=== PATIENT | female | born 1935 | race Caucasian/White ===

== ENCOUNTER 2018-04-01 15:00 | Inpatient (IN) | payer OTHER ==
--- NOTE | 2018-04-01 15:51 | PDOC ---
Attending Attestation - Resident Resident Name: Amari Bang - ED Attending Attestation I have performed the following: I have examined & evaluated the patient, The case was reviewed & discussed with the resident, I agree w/resident's findings & plan, Exceptions are as noted - HPI HPI: 04/01/18 16:10 82yo female with mechanical fall while walking with her walker today in the bathroom. Pt was caught by her granddaughter. States knee pain and R leg pain. Pt states able to get up with paramedics. No head injury. No loc. no neck pain. No back pain. No cp/sob/palpitations/lightheaded or dizziness prior to the fall. Pt denies recent abd pain. No n/v/d. No urinary complaints. Pt was walking into the bathroom when the event happened. Pt also had a mechanical fall off a chair last week and landed on her buttock. Pt denies all other complaints. Pt states she has chronic pain to her legs and follows with Dr. Patel. Denies back pain. - Physicial Exam PE: 04/01/18 16:12 Gen: aaox3, nad heart: +s1s2 reg lungs: cta b/l abd: soft, nt/nd +bs, obese ext: no c/c/e, radial and pedal pulses intact. Pt with FROM of LE without pain on both active and passive ROM. muscle strength 5/5 b/l LE, sensation intact, mild ecchymosis that appears old to R anterior tibia. Mild soft tissue swelling to L knee, incision scar to L knee c/d/i and well healed. FROM of hips, no pelvic ttp neuro: cn ii-xii grossly intact, no focal deficits, muscle strength 5/5 UE and LE, sensation intact skin: mild ecchymosis to R anterior tibia mid shaft, otherwise, warm, dry, intact - Medical Decision Making 04/01/18 15:51 I, Dr. Sybil Rowley, DO, attest that this document has been prepared under my direction and personally reviewed by me in its entirety. I further attest, that it accurately reflects all work, treatment, procedures and medical decision -making performed by me. 04/01/18 16:14 a/p: 82yo female with 2 mechanical falls -today fall because of pain in her legs while walking with her walker -will obtain xrays of knees, hips, pelvis -oxycodone for pain control -low suspicion for fracture -will monitor and reassess -EKG 04/01/18 16:55 degenerative changes of hips and pelvis T12, L2, L4 compression fractures - none that appear acute 04/01/18 20:01 pt unable to ambulate will place in obs will consult neurosx and ortho for pain eval Heart Score/ECG Review - ECG Intrepretation Comment:: 04/01/18 17:21 sinus at 99, nl axis, nl interval, no acute st/t wave finding
--- NOTE | 2018-04-01 16:20 | PDOC ---
History of Present Illness - General Chief Complaint: Injury Stated Complaint: FALL Time Seen by Provider: 04/01/18 15:18 History Source: Patient Exam Limitations: No Limitations - History of Present Illness Initial Comments: 04/01/18 16:14 The patient is an 82F with a PMH of depression, HTN, and HLD who presents with complaints of leg pain. The patient states that she fell twice over the past 1.5 weeks. She states that the first time she fell, she slipped off an office chair and fell on her buttocks. She saw her neurologist, Dr. Patel, who recommended an XR which she had not gotten. Today, she fell forward in her kitchen after tripping on an object. She was caught by her granddaughter but did sustain pain in her knees secondary to the fall. She denies any head trauma , LOC, numbness, tingling, weakness, CP, or SOB. Past History - Past Medical History Allergies/Adverse Reactions: Allergies Allergy/AdvReac Type Severity Reaction Status Date / Time No Known Allergies Allergy Verified 04/01/18 15:39 - Suicide/Smoking/Psychosocial Hx Smoking History: Current some day smoker Number of Cigarettes Smoked Daily: 3 Information on smoking cessation initiated: No Hx Alcohol Use: No Drug/Substance Use Hx: No Review of Systems - Review of Systems Able to Perform ROS?: Yes Comments:: 04/01/18 16:20 GENERAL/CONSTITUTIONAL: No fever or chills. No weakness. HEAD, EYES, EARS, NOSE AND THROAT: No change in vision. No ear pain or discharge. No sore throat. CARDIOVASCULAR: No chest pain, palpitations, or lightheadedness. RESPIRATORY: No cough, wheezing, shortness of breath, or hemoptysis. GASTROINTESTINAL: No nausea, vomiting, diarrhea, constipation, or abdominal pain. GENITOURINARY: No dysuria, frequency, hematuria, or change in urination. MUSCULOSKELETAL: Positive for b/l leg pain. No joint or muscle swelling or pain. No neck pain. SKIN: No rash or lesions. NEUROLOGIC: No headache, numbness, tingling, focal weakness, loss of consciousness, or change in strength/sensation. ENDOCRINE: No increased thirst. No abnormal weight change. HEMATOLOGIC/LYMPHATIC: No anemia, easy bleeding, or history of blood clots. ALLERGIC/IMMUNOLOGIC: No hives or skin allergy. Is the patient limited Sinhala proficient: No *Physical Exam - Vital Signs Last Vital Signs Temp Pulse Resp BP Pulse Ox 98.2 F 84 20 128/77 94 L 04/01/18 15:07 04/01/18 15:07 04/01/18 15:07 04/01/18 15:07 04/01/18 15:07 - Physical Exam Comments: 04/01/18 16:21 GENERAL: Well developed, well nourished. Awake and alert. No acute distress. HEENT: Normocephalic, atraumatic. Hearing grossly normal. Moist mucous membranes. PERRLA, EOMI. No conjunctival pallor. Sclera are non-icteric. NECK: Supple. Full ROM. No JVD. CARDIOVASCULAR: Regular rate and rhythm. No murmurs, rubs, or gallops. PULMONARY: No evidence of respiratory distress. Lungs clear to auscultation bilaterally. No wheezing, rales or rhonchi. ABDOMINAL: Soft. Non-tender. Non-distended. No rebound or guarding. GENITOURINARY: No CVA tenderness bilaterally. MUSCULOSKELETAL: Normal range of motion at all joints. No bony deformities or tenderness. Mild sacral tenderness. EXTREMITIES: No cyanosis. No clubbing. No edema. No calf tenderness or swelling. SKIN: Warm and dry. Normal capillary refill. No rashes. No jaundice. NEUROLOGICAL: Alert, awake, appropriate. Cranial nerves 2-12 intact. No deficits to light touch and temperature in lower extremities. 5/5 strength in quadriceps, hamstrings, and gastrocnemius. Normal speech. Gait is normal without ataxia. PSYCHIATRIC: Cooperative. Good eye contact. Appropriate mood and affect. Heart Score/ECG Review #1 ECG reviewed & interpreted by me at: 17:46 General ECG Interpretation: Sinus Rhythm, Normal Rate, Normal Intervals, No acute ischemic changes Compared to previous ECG there are: Previous ECG unavail 04/01/18 17:46 NSR vent rate 95 NH 162 QRS 78 QTc 490 No STD or KAMILA No signs of acute ischemia Prolonged QT ED Treatment Course - RADIOLOGY Radiology Studies Ordered: Category Date Time Status KNEE 3 POS-LEFT [RAD] Stat Radiology 04/01/18 15:28 Taken KNEE 3 POS-RIGHT [RAD] Stat Radiology 04/01/18 15:28 Taken PELVIS [RAD] Stat Radiology 04/01/18 15:28 Taken SPINE-LUMBAR SACRAL [RAD] Stat Radiology 04/01/18 15:28 Taken - Medications Given in the ED: ED Medications Discontinued Medications Generic Name Dose Route Start Last Admin Trade Name Juan PRN Reason Stop Dose Admin Oxycodone/Acetaminophen 1 combo 04/01/18 15:29 04/01/18 15:34 Percocet 5/325 - PO 04/01/18 15:30 1 combo ONCE ONE Administration Medical Decision Making - Medical Decision Making 04/01/18 16:34 The patient is an 82F who presents to the ER after having 2 mechanical falls. The patient does not have a PCP or orthopedic surgeon who she follows with. Preliminary read of XR shows arthritic changes in b/l hips, worse on the R without occult fracture. Pending official read. Pending EKG. Pt did not hit her head or have LOC therefore no head CT is indicated. 04/01/18 17:45 XR's negative for acute pathology. Will walk with pt and d/c home with ortho and neurosurg f/u. 04/01/18 18:44 Pt unable to ambulate with my assistance. Will page Dr. Bahena for admission. 04/01/18 19:23 I have endorsed the pt to Dr. Bahena for admission. She requests that I place an order for an ortho consult. *DC/Admit/Observation/Transfer Diagnosis at time of Disposition: Pain aggravated by walking - Discharge Dispostion Condition at time of disposition: Guarded Decision to Admit order: Yes - Referrals Referrals: Angie Benson MD [Primary Care Provider] - Paul Holland MD [Staff Physician] - - Patient Instructions - Post Discharge Activity
--- NOTE | 2018-04-01 20:01 | HP ---
Admitting History and Physical - Primary Care Physician PCP: Simone Bahena - Admission History of Present Illness: 82F with a PMH of depression, HTN, and HLD who presents with complaints of leg pain. The patient states that she fell twice over the past 1.5 weeks. She states that the first time she fell, she slipped off an office chair and fell on her buttocks. She saw her neurologist, Dr. Patel, who recommended an XR which she had not gotten. Today, she fell forward in her kitchen after tripping on an object. She was caught by her granddaughter but did sustain pain in her knees secondary to the fall. She denies any head trauma, LOC, numbness, tingling , weakness, CP, or SOB. - Past Medical History Cardiovascular: Yes: HTN, Hyperlipdemia - Smoking History Smoking history: Current some day smoker Aproximately how many cigarettes per day: 3 - Alcohol/Substance Use Hx Alcohol Use: No Home Medications - Allergies Allergies/Adverse Reactions: Allergies Allergy/AdvReac Type Severity Reaction Status Date / Time No Known Allergies Allergy Verified 04/01/18 15:39 - Home Medications Home Medications: Ambulatory Orders Escitalopram Oxalate 10 mg PO DAILY 04/02/18 Imodium - 2 mg PO HS 04/02/18 Levothyroxine [Synthroid -] 137 mcg PO DAILY 04/02/18 Lisinopril [Zestril] 20 mg PO DAILY 04/02/18 Simvastatin 20 mg PO HS 04/02/18 Xanax 0.25 mg PO BID 04/02/18 Zolpidem Tartrate [Ambien] 5 mg PO DAILY 04/02/18 Physical Examination Vital Signs: Vital Signs Temperature 98.2 F 04/01/18 15:07 Pulse Rate 84 04/01/18 15:07 Respiratory Rate 20 04/01/18 15:07 Blood Pressure 128/77 04/01/18 15:07 O2 Sat by Pulse Oximetry (%) 94 L 04/01/18 15:07 Constitutional: Yes: No Distress HENT: Yes: Atraumatic Neck: Yes: Supple Cardiovascular: Yes: Regular Rate and Rhythm Respiratory: Yes: CTA Bilaterally Gastrointestinal: Yes: Normal Bowel Sounds Extremities: Yes: WNL Edema: No Neurological: Yes: Alert, Oriented Imaging - Results X-ray: Report Reviewed Problem List - Problems (1) Fall Assessment/Plan: xray no fracture will get ortho consult will get head ct prn pain meds physical therapy Code(s): W19.XXXA - UNSPECIFIED FALL, INITIAL ENCOUNTER (2) HTN (hypertension) Assessment/Plan: on meds stable Code(s): I10 - ESSENTIAL (PRIMARY) HYPERTENSION (3) HLD (hyperlipidemia) Assessment/Plan: on meds Code(s): E78.5 - HYPERLIPIDEMIA, UNSPECIFIED Assessment/Plan Laboratory Tests 04/01/18 04/01/18 04/02/18 20:01 20:45 10:10 WBC 13.9 H RBC 5.28 H Hgb 15.4 H Hct 47.4 H MCV 89.9 MCH 29.2 MCHC 32.4 RDW 14.9 Plt Count 385 MPV 7.0 L Absolute Neuts (auto) 11.0 H Neutrophils % 79.0 Neutrophils % (Manual) 82.0 Band Neutrophils % 1.0 Lymphocytes % 10.1 Lymphocytes % (Manual) 10.0 Monocytes % 9.7 Monocytes % (Manual) 4 Eosinophils % 0.3 Basophils % 0.9 Nucleated RBC % 0 Metamyelocytes 1 Platelet Estimate Adequate Sodium 142 Potassium 3.3 L Chloride 104 Carbon Dioxide 29 Anion Gap 9 BUN 20 H Creatinine 0.9 Creat Clearance w eGFR 59.65 Random Glucose 105 Calcium 8.8 Total Bilirubin 0.3 AST 16 ALT 23 Alkaline Phosphatase 92 Creatine Kinase 50 Troponin I < 0.02 Total Protein 6.2 L Albumin 3.0 L Urine Color Dkyellow Urine Appearance Slcloudy Urine pH 5.0 Ur Specific [place] 1.025 Urine Protein Negative Urine Glucose (UA) Negative Urine Ketones Negative Urine Blood Negative Urine Nitrite Negative Urine Bilirubin Negative Urine Urobilinogen Negative Ur Leukocyte Esterase Negative 04/02/18 11:10 WBC RBC Hgb Hct MCV MCH MCHC RDW Plt Count MPV Absolute Neuts (auto) Neutrophils % Neutrophils % (Manual) Band Neutrophils % Lymphocytes % Lymphocytes % (Manual) Monocytes % Monocytes % (Manual) Eosinophils % Basophils % Nucleated RBC % Metamyelocytes Platelet Estimate Sodium 144 Potassium 3.5 Chloride 104 Carbon Dioxide 31 Anion Gap 10 BUN 19 H Creatinine 0.8 Creat Clearance w eGFR > 60 Random Glucose 105 Calcium 8.6 Total Bilirubin AST ALT Alkaline Phosphatase Creatine Kinase 53 Troponin I < 0.02 Total Protein Albumin Urine Color Urine Appearance Urine pH Ur Specific [place] Urine Protein Urine Glucose (UA) Urine Ketones Urine Blood Urine Nitrite Urine Bilirubin Urine Urobilinogen Ur Leukocyte Esterase Active Medications Generic Name Dose Route Start Last Admin Trade Name Juan PRN Reason Stop Dose Admin Acetaminophen 650 mg 04/01/18 20:06 04/02/18 09:17 Tylenol - PO 650 mg Q6H PRN Administration FEVER Atorvastatin Calcium 10 mg 04/02/18 22:00 Lipitor - PO HS JOEY Docusate Sodium 100 mg 04/01/18 20:37 Colace - PO Q12H PRN CONSTIPATION Levothyroxine Sodium 25 mcg/ 137 mcg 04/02/18 10:15 04/02/18 12:47 Levothyroxine Sodium 112 mcg PO 137 mcg DAILY@0700 JOEY Administration Lisinopril 20 mg 04/02/18 10:00 04/02/18 12:49 Prinivil PO 20 mg DAILY JOEY Administration Nystatin 1 applic 04/02/18 10:15 04/02/18 13:35 Mycostatin Cream - TP 1 applic BID JOEY Administration Oxycodone HCl 10 mg 04/01/18 20:36 04/02/18 12:52 Roxicodone - PO 10 mg Q6H PRN Administration PAIN LEVEL 4 - 6 Zolpidem Tartrate 5 mg 04/02/18 10:04 Ambien - PO HS PRN INSOMNIA
[2018-04-01] MEDS ORDERED: DOCUSATE SODIUM 100 MG CAPSULE (FP) PO PRN (20:37)
[2018-04-01 20:58] LABS: BASO % 0.9 % (0-2.0); EOS % 0.3 % (0-4.5); HEMATOCRIT 47.4 % (32.4-45.2); HEMOGLOBIN 15.4 GM/dL (10.7-15.3); LYMPH % 10.1 % (8-40); MCH 29.2 pg (25.7-33.7); MCHC 32.4 g/dl (32.0-36.0); MEAN CELL VOLUME 89.9 fl (80-96); MONO % 9.7 % (3.8-10.2); PLATELET COUNT 385 K/MM3 (134-434); RBC 5.28 M/mm3 (3.60-5.2); RDW 14.9 % (11.6-15.6); WHITE BLOOD COUNT 13.9 K/mm3 (4.0-10.0)
[2018-04-01 22:18] LABS: PLATELET ESTIMATE ADEQUATE
[2018-04-01] MEDS ORDERED: oxyCODONE HCL 5 MG TABLET ONE (22:22)
[2018-04-01 22:44] LABS: ALK PHOS 92 U/L (45-117); ANION GAP 9 MMOL/L (8-16); BILIRUBIN,TOTAL 0.3 mg/dL (0.2-1); BLOOD UREA NITROGEN 20 mg/dL (7-18); CALCIUM 8.8 mg/dL (8.5-10.1); CHLORIDE 104 mmol/L (98-107); CO2 29 mmol/L (21-32); CREATININE 0.9 mg/dL (0.55-1.3); GLUCOSE,RANDOM 105 mg/dL (74-106); POTASSIUM 3.3 mmol/L (3.5-5.1); SGOT/AST 16 U/L (15-37); SGPT/ALT 23 U/L (13-61); SODIUM 142 mmol/L (136-145); TOT PROT 6.2 g/dl (6.4-8.2)
[2018-04-02] MEDS ORDERED: oxyCODONE HCL 5 MG TABLET ONE (06:00)
[2018-04-02] MEDS: oxyCODONE HCL 5 MG TABLET PO PRN ×3 (06:03→18:46)
[2018-04-02] MEDS: ACETAMINOPHEN 325 MG TABLET (FP) PO PRN (09:17)
[2018-04-02] MEDS ORDERED: ZOLPIDEM TARTRATE 5 MG TABLET PO PRN (10:04)
[2018-04-02] MEDS ORDERED: PT OWN MED DRAWER 7, Y5N ONE ×2 (10:55→11:34)
--- NOTE | 2018-04-02 11:34 | CON.ORTH ---
Consult Reason for Consultation:: b/l leg pain, LBP - Past Medical History Cardio/Vascular: Yes: HTN, Hyperlipdemia - Alcohol/Substance Use Hx Alcohol Use: No - Smoking History Smoking history: Current some day smoker Aproximately how many cigarettes per day: 3 Home Medications - Allergies Allergies/Adverse Reactions: Allergies Allergy/AdvReac Type Severity Reaction Status Date / Time No Known Allergies Allergy Verified 04/01/18 15:39 - Home Medications Home Medications: Ambulatory Orders Levothyroxine [Synthroid -] 137 mcg PO DAILY 04/02/18 Lisinopril [Zestril] 20 mg PO DAILY 04/02/18 Simvastatin 20 mg PO HS 04/02/18 Zolpidem Tartrate [Ambien] 5 mg PO DAILY 04/02/18 Physical Exam for Ortho Vital Signs: Vital Signs Temperature 98 F 04/02/18 08:00 Pulse Rate 78 04/02/18 08:00 Respiratory Rate 18 04/02/18 08:00 Blood Pressure 133/77 04/02/18 08:00 O2 Sat by Pulse Oximetry (%) 98 04/02/18 06:30 Labs: CBC, BMP 04/01/18 20:01 - Lower Extremity Hip: Yes: Right, Decreased ROM, Pain, Swelling, Other (Right hip- + ttp, decr IR and ER, nvi) Knee: Yes: Left, Right, Pain, Other (+ ttp, ROM 0-130, calf soft, nt, nvi) Other Findings/Remarks: LS spine- +ttp, decr rom, nvi Imaging - Results X-ray: Report Reviewed, Image Reviewed Assessment/Plan 82F with a PMH of depression, HTN, and HLD who presented to ED s/p fall.She is c /o b/l leg pain R>L. The patient states that she fell twice over the past 1.5 weeks. She states that the first time she fell, she slipped off an office chair and fell on her buttocks. She saw her neurologist, Dr. Patel, who recommended an XR which she had not gotten. She fell 1 day ago forward after tripping on an object. She was caught by her granddaughter but did sustain pain in her knees secondary to the fall. She states it was from being on her knees until EMS came. She denies any head trauma, LOC, numbness, tingling, weakness, CP, or SOB , bowel/bladder dysfunction. 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 Mart
[2018-04-02 12:14] LABS: ANION GAP 10 MMOL/L (8-16); BLOOD UREA NITROGEN 19 mg/dL (7-18); CALCIUM 8.6 mg/dL (8.5-10.1); CHLORIDE 104 mmol/L (98-107); CO2 31 mmol/L (21-32); CREATININE 0.8 mg/dL (0.55-1.3); GLUCOSE,RANDOM 105 mg/dL (74-106); POTASSIUM 3.5 mmol/L (3.5-5.1); SODIUM 144 mmol/L (136-145)
--- NOTE | 2018-04-02 12:16 | EKG ---
Test Reason : Blood Pressure : / mmHG Vent. Rate : 087 BPM Atrial Rate : 087 BPM P-R Int : 000 ms QRS Dur : 078 ms QT Int : 364 ms P-R-T Axes : 000 -09 000 degrees QTc Int : 438 ms POOR DATA QUALITY, INTERPRETATION MAY BE ADVERSELY AFFECTED SINUS RHYTHM PREMATURE ATRIAL COMPLEXES INFERIOR INFARCT (CITED ON OR BEFORE 01-APR-2018) CANNOT RULE OUT ANTERIOR INFARCT (CITED ON OR BEFORE 01-APR-2018) Confirmed by VIOLETA AGUERO MD ([id number]) on 04/02/2018 12:15:41 PM Referred By: Confirmed By:VIOLETA AGUERO MD
--- NOTE | 2018-04-02 12:18 | EKG ---
Test Reason : Blood Pressure : / mmHG Vent. Rate : 099 BPM Atrial Rate : 099 BPM P-R Int : 162 ms QRS Dur : 078 ms QT Int : 382 ms P-R-T Axes : 068 -15 023 degrees QTc Int : 490 ms NORMAL SINUS RHYTHM WITH SINUS ARRHYTHMIA INFERIOR INFARCT , AGE UNDETERMINED POSSIBLE ANTERIOR INFARCT , AGE UNDETERMINED ABNORMAL ECG NO PREVIOUS ECGS AVAILABLE Confirmed by VIOLETA AGUERO MD ([id number]) on 04/02/2018 12:18:13 PM Referred By: Confirmed By:VIOLETA AGUERO MD
[2018-04-02] MEDS: LEVOTHYROXINE 25 MCG, LEVOTHYROXINE 112 MCG PO SCH (12:47)
[2018-04-02] MEDS: LISINOPRIL 20 MG TABLET (FP) PO SCH (12:49)
[2018-04-02 13:13] VITALS: BMI 40.1
[2018-04-02] MEDS: NYSTATIN 100,000 UNIT/GM TOPICAL CREAM 15 GM TUBE TP SCH ×2 (13:35→21:35)
--- NOTE | 2018-04-02 13:42 | CON.NEURO ---
Consult Consult Specialty:: Jorge Referred by:: PCP - History of Present Illness History of Present Illness: 82 years old woman with PMH CAD hhigh cholesterol Hypertension Obesity Chronic low back pain Gait dysfunction multifactorial I saw the patient last week actually in my office patient was evaluated with her daughter and the granddaughter in my office with the chief difficulty of increasing problem with the stability and walking patient is becoming more and more dependent on the wheelchair unfortunately patient fell again. Patient was admitted to the hospital CAT scan of the head was done no report of any acute pathology. Since admission patient has been complaining of lower back pain. Historically patient with history of narcotic dependency we succeeded in the office to stop that the patient had not been on narcotics from us since December 2017. Patient came to the office asking for the same medication I refused. Patient was started on anti-inflammatory. - History Source History Provided By: Patient Limitations to Obtaining History: No Limitations - Past Medical History Cardio/Vascular: Yes: HTN, Hyperlipdemia - Alcohol/Substance Use Hx Alcohol Use: No - Smoking History Smoking history: Current some day smoker Have you smoked in the past 12 months: Yes Aproximately how many cigarettes per day: 3 If you are a former smoker, when did you quit?: may this yr Home Medications - Allergies Allergies/Adverse Reactions: Allergies Allergy/AdvReac Type Severity Reaction Status Date / Time No Known Allergies Allergy Verified 04/01/18 15:39 - Home Medications Home Medications: Ambulatory Orders Levothyroxine [Synthroid -] 137 mcg PO DAILY 04/02/18 Lisinopril [Zestril] 20 mg PO DAILY 04/02/18 Simvastatin 20 mg PO HS 04/02/18 Zolpidem Tartrate [Ambien] 5 mg PO DAILY 04/02/18 Family Disease History - Family Disease History Family History: Denies (stroke) Review of Systems - Review of Systems Musculoskeletal: reports: Back Pain, Joint Pain Neurological: reports: Headache, Incoordination, Numbness Physical Exam-Neuro Vital Signs: Vital Signs Temperature 98 F 04/02/18 08:00 Pulse Rate 78 04/02/18 08:00 Respiratory Rate 18 04/02/18 08:00 Blood Pressure 133/77 04/02/18 08:00 O2 Sat by Pulse Oximetry (%) 92 L 04/02/18 07:46 Constitutional: Yes: Well Nourished Neck: Yes: WNL Cardiovascular: Yes: WNL Labs: CBC, BMP 04/01/18 20:01 04/02/18 11:10 - Neuro Exam Level Of Consciousness: Yes: Oriented to Person, Oriented to Place, Oriented to Time Eyes: Yes: PERRLA Speech: WNL Dominant Hand: Right Cranial Nerves II-XII Intact: Yes Gag: Present DTR's: 1+ Left Bicep, 1+ Right Bicep Response to light touch: Abnormal Response to pain prick: Abnormal Response to temperature: Abnormal Motor Strength: 3/5: Left Arm, Right Arm, Left Leg, Right Leg Gait: Deferred Imaging - Results Cat Scan: Image Reviewed Problem List - Problems (1) Fall Assessment/Plan: ppatient with a chronic complicated lower back pathology with combination of degenerative disc disease/stenosis/osteoarthritis On exam there is no evidence of myelopathy Patient is neurologically stable Most probably mechanical fall associated with the lower back pain complication 11. Reassurance. 2. Physical therapy. 3. Fall precautions. 4. Check B-12. 5. CAT scan of the lumbosacral spine with no contrast. 6. Please avoid all narcotics due to previous dependency. 7. Flexeril at bedtime with side effects of sedation and dizziness were explained to the patient. Thank you very much for a Rea patient for neurological consultation Code(s): W19.XXXA - UNSPECIFIED FALL, INITIAL ENCOUNTER
[2018-04-02 14:23] LABS: URINE APPEARANCE SLCLOUDY; URINE BILIRUBIN NEGATIVE (<2.0 mg/dL); URINE COLOR DKYELLOW; URINE GLUCOSE (UA) NEGATIVE (NEGATIVE); URINE KETONE NEGATIVE (NEGATIVE); URINE LEUK ESTERASE NEGATIVE (NEGATIVE); URINE NITRITE NEGATIVE (NEGATIVE); URINE PROTEIN NEGATIVE (NEGATIVE); URINE UROBILINOGEN NEGATIVE mg/dL (0.2-1.0)
--- NOTE | 2018-04-02 17:53 | PN ---
Progress Note, Physician History of Present Illness: feeling good - Current Medication List Current Medications: Active Medications Acetaminophen (Tylenol -) 650 mg PO Q6H PRN PRN Reason: FEVER Last Admin: 04/02/18 09:17 Dose: 650 mg Atorvastatin Calcium (Lipitor -) 10 mg PO HS [facility] Docusate Sodium (Colace -) 100 mg PO Q12H PRN PRN Reason: CONSTIPATION Levothyroxine Sodium 25 mcg/ (Levothyroxine Sodium 112 mcg) 137 mcg PO DAILY@ 0700 [facility] Last Admin: 04/02/18 12:47 Dose: 137 mcg Lisinopril (Prinivil) 20 mg PO DAILY [facility] Last Admin: 04/02/18 12:49 Dose: 20 mg Non-Formulary Medication (Escitalopram Oxalate) 10 mg PO DAILY [facility] Non-Formulary Medication (Imodium -) 2 mg PO HS [facility] Non-Formulary Medication (Xanax) 0.25 mg PO BID [facility] Nystatin (Mycostatin Cream -) 1 applic TP BID [facility] Last Admin: 04/02/18 13:35 Dose: 1 applic Oxycodone HCl (Roxicodone -) 10 mg PO Q6H PRN PRN Reason: PAIN LEVEL 4 - 6 Last Admin: 04/02/18 12:52 Dose: 10 mg Zolpidem Tartrate (Ambien -) 5 mg PO HS PRN PRN Reason: INSOMNIA - Objective Vital Signs: Vital Signs Temperature 98.2 F 04/02/18 14:11 Pulse Rate 90 04/02/18 14:11 Respiratory Rate 22 H 04/02/18 14:11 Blood Pressure 150/63 04/02/18 14:11 O2 Sat by Pulse Oximetry (%) 92 L 04/02/18 12:00 Constitutional: Yes: No Distress HENT: Yes: Atraumatic Neck: Yes: Supple Cardiovascular: Yes: Regular Rate and Rhythm Respiratory: Yes: CTA Bilaterally Gastrointestinal: Yes: Normal Bowel Sounds Extremities: Yes: WNL Neurological: Yes: Alert, Oriented Labs: CBC, BMP 04/01/18 20:01 04/02/18 11:10 Problem List - Problems (1) Fall Assessment/Plan: for rehab placement doing well Code(s): W19.XXXA - UNSPECIFIED FALL, INITIAL ENCOUNTER (2) HTN (hypertension) Assessment/Plan: on meds stable Code(s): I10 - ESSENTIAL (PRIMARY) HYPERTENSION (3) HLD (hyperlipidemia) Assessment/Plan: on meds Code(s): E78.5 - HYPERLIPIDEMIA, UNSPECIFIED
[2018-04-02] MEDS ORDERED: ESCITALOPRAM OXALATE 10 MG PO SCH (18:00)
[2018-04-02] MEDS ORDERED: LOPERAMIDE HCL 2 MG CAPSULE PO PRN (18:04)
[2018-04-02] MEDS: ALPRAZolam 0.25 MG TABLET PO SCH (21:34)
[2018-04-02] MEDS: ATORVASTATIN CA 10 MG TABLET (FP) PO SCH (21:34)
[2018-04-02] MEDS: LOPERAMIDE HCL 2 MG CAPSULE PO SCH (21:35)
[2018-04-02] MEDS ORDERED: XANAX 0.25 MG PO SCH (22:00)
[2018-04-02] MEDS ORDERED: IMODIUM PO SCH (22:00)
[2018-04-03] MEDS: LEVOTHYROXINE 25 MCG, LEVOTHYROXINE 112 MCG PO SCH (06:05)
[2018-04-03] MEDS: LISINOPRIL 20 MG TABLET (FP) PO SCH (10:07)
[2018-04-03] MEDS: ESCITALOPRAM OXALATE 10 MG TABLET (FP) PO SCH (10:07)
[2018-04-03] MEDS: NYSTATIN 100,000 UNIT/GM TOPICAL CREAM 15 GM TUBE TP SCH ×2 (10:07→21:24)
[2018-04-03] MEDS: ALPRAZolam 0.25 MG TABLET PO SCH ×2 (10:07→21:19)
--- NOTE | 2018-04-03 10:13 | PN ---
Progress Note (short form) - Note Progress Note: Ortho Pt seen and examined- right hip, b/l knees, LS spine feeling better today Selected Entries 04/03/18 10:05 Temperature 98.9 F Pulse Rate 86 Respiratory 20 Rate Blood Pressure 145/85 decr pain, incr rom nvi CT scan reviewed a/p PT wbat pain control neuro f/u would benefit from short-term rehab d/w Dr. Ledezma
[2018-04-03] MEDS: oxyCODONE HCL 5 MG TABLET PO PRN (11:03)
--- NOTE | 2018-04-03 12:22 | CON.ID ---
Consult Consult Specialty:: infectious diseases Referred by:: Reason for Consultation:: UTI - History of Present Illness Chief Complaint: pain in the hip joint History of Present Illness: 82yo female with mechanical fall while walking with her walker today in the bathroom. Pt was caught by her granddaughter. States knee pain and R leg pain. Pt states able to get up with paramedics. No head injury. No loc. no neck pain. No back pain. No cp/sob/palpitations/lightheaded or dizziness prior to the fall. Pt denies recent abd pain. No n/v/d. No urinary complaints. Pt was walking into the bathroom when the event happened. Pt also had a mechanical fall off a chair last week and landed on her buttock. Pt denies all other complaints. Pt states she has chronic pain to her legs and follows with Dr. Patel. Denies back pain. the above was the history for admission patient was worked up for fall and patients urine ahs come positive - History Source History Provided By: Patient Limitations to Obtaining History: No Limitations - Past Medical History Cardio/Vascular: Yes: HTN, Hyperlipdemia - Alcohol/Substance Use Hx Alcohol Use: No - Smoking History Smoking history: Current some day smoker Have you smoked in the past 12 months: Yes Aproximately how many cigarettes per day: 3 If you are a former smoker, when did you quit?: may this yr Home Medications - Allergies Allergies/Adverse Reactions: Allergies Allergy/AdvReac Type Severity Reaction Status Date / Time No Known Allergies Allergy Verified 04/01/18 15:39 - Home Medications Home Medications: Ambulatory Orders Escitalopram Oxalate 10 mg PO DAILY 04/02/18 Imodium - 2 mg PO HS 04/02/18 Levothyroxine [Synthroid -] 137 mcg PO DAILY 04/02/18 Lisinopril [Zestril] 20 mg PO DAILY 04/02/18 Simvastatin 20 mg PO HS 04/02/18 Xanax 0.25 mg PO BID 04/02/18 Zolpidem Tartrate [Ambien] 5 mg PO DAILY 04/02/18 Review of Systems - Review of Systems Constitutional: reports: No Symptoms Eyes: reports: No Symptoms HENT: reports: No Symptoms Neck: reports: No Symptoms Cardiovascular: reports: No Symptoms Respiratory: reports: No Symptoms Gastrointestinal: reports: No Symptoms Genitourinary: reports: No Symptoms Musculoskeletal: reports: Joint Pain (rt hip pain) Integumentary: reports: No Symptoms Neurological: reports: No Symptoms Endocrine: reports: No Symptoms Hematology/Lymphatic: reports: No Symptoms Psychiatric: reports: No Symptoms Physical Exam Vital Signs: Vital Signs Temperature 98.9 F 04/03/18 10:05 Pulse Rate 86 04/03/18 10:05 Respiratory Rate 20 04/03/18 10:05 Blood Pressure 145/85 04/03/18 10:05 O2 Sat by Pulse Oximetry (%) 95 04/03/18 04:00 Constitutional: Yes: Well Nourished, Calm, Moderate Distress (pain) Eyes: Yes: Conjunctiva Clear Cardiovascular: Yes: Regular Rate and Rhythm Respiratory: Yes: Regular, CTA Bilaterally Gastrointestinal: Yes: Normal Bowel Sounds, Soft Musculoskeletal: Yes: Other (rt hip pain) Extremities: Yes: WNL Neurological: Yes: Alert, Oriented Psychiatric: Yes: Alert, Oriented Labs: CBC, BMP 04/01/18 20:01 04/02/18 11:10 Assessment/Plan Problem List - Problems (1) Fall Code(s): W19.XXXA - UNSPECIFIED FALL, INITIAL ENCOUNTER (2) HTN (hypertension) Code(s): I10 - ESSENTIAL (PRIMARY) HYPERTENSION (3) HLD (hyperlipidemia) Code(s): E78.5 - HYPERLIPIDEMIA, UNSPECIFIED 4 uti plan i would treat her for few days with levaquin 500 mg daily for 5 days rest as per the team
[2018-04-03 13:13] LABS: BASO % 0.8 % (0-2.0); EOS % 1.3 % (0-4.5); HEMATOCRIT 44.9 % (32.4-45.2); HEMOGLOBIN 14.9 GM/dL (10.7-15.3); MCH 29.8 pg (25.7-33.7); MCHC 33.2 g/dl (32.0-36.0); MEAN CELL VOLUME 89.6 fl (80-96); MEAN PLT VOLUME 7.1 fl (7.5-11.1); MONO % 7.8 % (3.8-10.2); NEUT % 75.1 % (42.8-82.8); PLATELET COUNT 356 K/MM3 (134-434); RBC 5.01 M/mm3 (3.60-5.2); RDW 14.8 % (11.6-15.6); WHITE BLOOD COUNT 9.8 K/mm3 (4.0-10.0)
[2018-04-03 14:05] LABS: ALK PHOS 96 U/L (45-117); ANION GAP 9 MMOL/L (8-16); BILIRUBIN,TOTAL 0.5 mg/dL (0.2-1); BLOOD UREA NITROGEN 18 mg/dL (7-18); CALCIUM 8.7 mg/dL (8.5-10.1); CHLORIDE 103 mmol/L (98-107); CO2 29 mmol/L (21-32); CREATININE 0.8 mg/dL (0.55-1.3); GLUCOSE,RANDOM 151 mg/dL (74-106); POTASSIUM 3.5 mmol/L (3.5-5.1); SGOT/AST 21 U/L (15-37); SGPT/ALT 31 U/L (13-61); SODIUM 141 mmol/L (136-145)
--- NOTE | 2018-04-03 18:20 | DS ---
Physical Examination Vital Signs: Vital Signs Temperature 98.3 F 04/03/18 15:15 Pulse Rate 87 04/03/18 15:15 Respiratory Rate 20 04/03/18 15:15 Blood Pressure 144/88 04/03/18 15:15 O2 Sat by Pulse Oximetry (%) 92 L 04/03/18 12:00 Labs: CBC, BMP 04/03/18 12:55 04/03/18 12:55 Discharge Summary Reason For Visit: PAIN AGGRAVATED BY WALKING Current Active Problems Fall (Acute) HLD (hyperlipidemia) (Acute) HTN (hypertension) (Acute) Pain aggravated by walking (Acute) Condition: Guarded - Instructions Diet, Activity, Other Instructions: tylenol 650 q6h prn for pain Referrals: Angie Benson MD [Primary Care Provider] - Paul Holland MD [Staff Physician] - Fatemeh Patel MD [Staff Physician] - - Home Medications Comprehensive Discharge Medication List: Ambulatory Orders Escitalopram Oxalate 10 mg PO DAILY 04/02/18 Imodium - 2 mg PO HS 04/02/18 Levothyroxine [Synthroid -] 137 mcg PO DAILY 04/02/18 Lisinopril [Zestril] 20 mg PO DAILY 04/02/18 Simvastatin 20 mg PO HS 04/02/18 Xanax 0.25 mg PO BID 04/02/18 Zolpidem Tartrate [Ambien] 5 mg PO DAILY 04/02/18 Levofloxacin [Levaquin] 500 mg PO DAILY #5 tablet 04/03/18 levoFLOXacin [Levaquin -] 500 mg PO DAILY@0600 #5 tablet 04/03/18 [facility]
--- NOTE | 2018-04-03 18:20 | PN ---
Progress Note, Physician - Current Medication List Current Medications: Active Medications Acetaminophen (Tylenol -) 650 mg PO Q6H PRN PRN Reason: FEVER Last Admin: 04/02/18 09:17 Dose: 650 mg Alprazolam (Xanax -) 0.25 mg PO BID [facility] Last Admin: 04/03/18 10:07 Dose: 0.25 mg Atorvastatin Calcium (Lipitor -) 10 mg PO HS [facility] Last Admin: 04/02/18 21:34 Dose: 10 mg Escitalopram Oxalate (Lexapro -) 10 mg PO DAILY [facility] Last Admin: 04/03/18 10:07 Dose: 10 mg Levofloxacin (Levaquin -) 500 mg PO DAILY@0600 [facility] Last Admin: 04/03/18 16:21 Dose: 500 mg Levothyroxine Sodium 25 mcg/ (Levothyroxine Sodium 112 mcg) 137 mcg PO DAILY@ 0700 [facility] Last Admin: 04/03/18 06:05 Dose: 137 mcg Lisinopril (Prinivil) 20 mg PO DAILY [facility] Last Admin: 04/03/18 10:07 Dose: 20 mg Loperamide HCl (Imodium -) 2 mg PO HS PRN PRN Reason: DIARRHEA Loperamide HCl (Imodium -) 4 mg PO HS [facility] Last Admin: 04/02/18 21:35 Dose: Not Given Nystatin (Mycostatin Cream -) 1 applic TP BID [facility] Last Admin: 04/03/18 10:07 Dose: 1 applic Oxycodone HCl (Roxicodone -) 10 mg PO Q6H PRN PRN Reason: PAIN LEVEL 4 - 6 Last Admin: 04/03/18 11:03 Dose: 10 mg Zolpidem Tartrate (Ambien -) 5 mg PO HS PRN PRN Reason: INSOMNIA - Objective Vital Signs: Vital Signs Temperature 98.3 F 04/03/18 15:15 Pulse Rate 87 04/03/18 15:15 Respiratory Rate 20 04/03/18 15:15 Blood Pressure 144/88 04/03/18 15:15 O2 Sat by Pulse Oximetry (%) 92 L 04/03/18 12:00 Constitutional: Yes: No Distress HENT: Yes: Atraumatic Neck: Yes: Supple Cardiovascular: Yes: Regular Rate and Rhythm Respiratory: Yes: CTA Bilaterally Gastrointestinal: Yes: Normal Bowel Sounds Extremities: Yes: WNL Edema: No Peripheral Pulses WNL: Yes Neurological: Yes: Alert, Oriented Labs: CBC, BMP 04/03/18 12:55 04/03/18 12:55 Problem List - Problems (1) Fall Assessment/Plan: for rehab placement Code(s): W19.XXXA - UNSPECIFIED FALL, INITIAL ENCOUNTER (2) HTN (hypertension) Assessment/Plan: on meds stable Code(s): I10 - ESSENTIAL (PRIMARY) HYPERTENSION (3) HLD (hyperlipidemia) Assessment/Plan: on meds Code(s): E78.5 - HYPERLIPIDEMIA, UNSPECIFIED
[2018-04-03] MEDS ORDERED: FLU VACCINE QUAD 60 MCG/0.5 ML (MDV 18-19) IM ONE (20:35)
[2018-04-03] MEDS: LOPERAMIDE HCL 2 MG CAPSULE PO SCH (21:19)
[2018-04-03] MEDS: ATORVASTATIN CA 10 MG TABLET (FP) PO SCH (21:19)
[2018-04-04] MEDS: ACETAMINOPHEN 325 MG TABLET (FP) PO PRN ×3 (02:21→20:52)
[2018-04-04] MEDS ORDERED: PT OWN MED DRAWER 7, Y5N ONE ×2 (05:40→10:27)
[2018-04-04] MEDS: LEVOTHYROXINE 25 MCG, LEVOTHYROXINE 112 MCG PO SCH (06:13)
[2018-04-04] MEDS: oxyCODONE HCL 5 MG TABLET PO PRN (08:42)
[2018-04-04] MEDS: ALPRAZolam 0.25 MG TABLET PO SCH ×2 (10:32→21:30)
[2018-04-04] MEDS: ESCITALOPRAM OXALATE 10 MG TABLET (FP) PO SCH (10:32)
[2018-04-04] MEDS: NYSTATIN 100,000 UNIT/GM TOPICAL CREAM 15 GM TUBE TP SCH ×2 (10:32→22:56)
[2018-04-04] MEDS: LISINOPRIL 20 MG TABLET (FP) PO SCH (10:32)
--- NOTE | 2018-04-04 15:18 | PN ---
Progress Note, Physician History of Present Illness: Pt c/o back pain but no other specific complaints expressed. Temp 99.3F noted today. - Current Medication List Current Medications: Active Medications Acetaminophen (Tylenol -) 650 mg PO Q6H PRN PRN Reason: FEVER Last Admin: 04/04/18 15:01 Dose: 650 mg Alprazolam (Xanax -) 0.25 mg PO BID [facility] Last Admin: 04/04/18 10:32 Dose: 0.25 mg Atorvastatin Calcium (Lipitor -) 10 mg PO HS [facility] Last Admin: 04/03/18 21:19 Dose: 10 mg Escitalopram Oxalate (Lexapro -) 10 mg PO DAILY [facility] Last Admin: 04/04/18 10:32 Dose: 10 mg Levofloxacin (Levaquin -) 500 mg PO DAILY@0600 [facility] Last Admin: 04/04/18 06:13 Dose: 500 mg Levothyroxine Sodium 25 mcg/ (Levothyroxine Sodium 112 mcg) 137 mcg PO DAILY@ 0700 [facility] Last Admin: 04/04/18 06:13 Dose: 137 mcg Lisinopril (Prinivil) 20 mg PO DAILY [facility] Last Admin: 04/04/18 10:32 Dose: 20 mg Loperamide HCl (Imodium -) 2 mg PO HS PRN PRN Reason: DIARRHEA Loperamide HCl (Imodium -) 4 mg PO HS [facility] Last Admin: 04/03/18 21:19 Dose: Not Given Nystatin (Mycostatin Cream -) 1 applic TP BID [facility] Last Admin: 04/04/18 10:32 Dose: 1 applic Oxycodone HCl (Roxicodone -) 10 mg PO Q6H PRN PRN Reason: PAIN LEVEL 4 - 6 Last Admin: 04/04/18 08:42 Dose: 10 mg Zolpidem Tartrate (Ambien -) 5 mg PO HS PRN PRN Reason: INSOMNIA - Objective Vital Signs: Vital Signs Temperature 99.3 F 04/04/18 14:44 Pulse Rate 98 H 04/04/18 14:44 Respiratory Rate 16 04/04/18 14:44 Blood Pressure 144/79 04/04/18 14:44 O2 Sat by Pulse Oximetry (%) 95 04/04/18 09:00 Constitutional: Yes: No Distress, Calm Cardiovascular: Yes: Regular Rate and Rhythm Respiratory: Yes: Regular Gastrointestinal: Yes: Normal Bowel Sounds, Soft Genitourinary: Yes: WNL Musculoskeletal: Yes: Back Pain Extremities: Yes: WNL Neurological: Yes: Alert, Oriented Labs: CBC, BMP 04/03/18 12:55 04/03/18 12:55 Problem List - Problems (1) Fall Code(s): W19.XXXA - UNSPECIFIED FALL, INITIAL ENCOUNTER (2) HLD (hyperlipidemia) Code(s): E78.5 - HYPERLIPIDEMIA, UNSPECIFIED (3) HTN (hypertension) Code(s): I10 - ESSENTIAL (PRIMARY) HYPERTENSION Assessment/Plan leukocytosis s/p Fall HTN HLD -- wbc now normal on Levaquin started empirically -- temperature mildly elevated today -- repeat cbc in a.m., cont. monitor temps - will consider d/c antibiotics
[2018-04-04] MEDS: ATORVASTATIN CA 10 MG TABLET (FP) PO SCH (21:29)
[2018-04-04] MEDS: LOPERAMIDE HCL 2 MG CAPSULE PO SCH (21:42)
--- NOTE | 2018-04-05 00:22 | PN ---
Progress Note, Physician History of Present Illness: Pt seen and examined 04/04/18 however note is being entered now - Current Medication List Current Medications: Active Medications Acetaminophen (Tylenol -) 650 mg PO Q6H PRN PRN Reason: FEVER Last Admin: 04/04/18 20:52 Dose: 650 mg Alprazolam (Xanax -) 0.25 mg PO BID [facility] Last Admin: 04/04/18 21:30 Dose: 0.25 mg Atorvastatin Calcium (Lipitor -) 10 mg PO HS [facility] Last Admin: 04/04/18 21:29 Dose: 10 mg Escitalopram Oxalate (Lexapro -) 10 mg PO DAILY [facility] Last Admin: 04/04/18 10:32 Dose: 10 mg Levofloxacin (Levaquin -) 500 mg PO DAILY@0600 [facility] Last Admin: 04/04/18 06:13 Dose: 500 mg Levothyroxine Sodium 25 mcg/ (Levothyroxine Sodium 112 mcg) 137 mcg PO DAILY@ 0700 [facility] Last Admin: 04/04/18 06:13 Dose: 137 mcg Lisinopril (Prinivil) 20 mg PO DAILY [facility] Last Admin: 04/04/18 10:32 Dose: 20 mg Loperamide HCl (Imodium -) 2 mg PO HS PRN PRN Reason: DIARRHEA Loperamide HCl (Imodium -) 4 mg PO HS [facility] Last Admin: 04/04/18 21:42 Dose: Not Given Nystatin (Mycostatin Cream -) 1 applic TP BID [facility] Last Admin: 04/04/18 22:56 Dose: 1 applic Zolpidem Tartrate (Ambien -) 5 mg PO HS PRN PRN Reason: INSOMNIA Last Admin: 04/04/18 21:29 Dose: 5 mg - Objective Vital Signs: Vital Signs Temperature 97.5 F L 04/04/18 21:04 Pulse Rate 95 H 04/04/18 21:04 Respiratory Rate 20 04/04/18 21:04 Blood Pressure 139/76 04/04/18 21:04 O2 Sat by Pulse Oximetry (%) 94 L 04/04/18 21:00 Neck: Yes: WNL, Supple Cardiovascular: Yes: WNL, Regular Rate and Rhythm Respiratory: Yes: WNL, Regular, CTA Bilaterally Gastrointestinal: Yes: WNL, Normal Bowel Sounds, Soft Labs: CBC, BMP 04/03/18 12:55 04/03/18 12:55 Problem List - Problems (1) Leukocytosis Assessment/Plan: Due to UTI WBC is now normal Cont antibiotic Code(s): D72.829 - ELEVATED WHITE BLOOD CELL COUNT, UNSPECIFIED (2) Fall Assessment/Plan: Pt w/ intractable back/knee pain Probably would benefit from STR Code(s): W19.XXXA - UNSPECIFIED FALL, INITIAL ENCOUNTER (3) HLD (hyperlipidemia) Assessment/Plan: Cont lipitor Code(s): E78.5 - HYPERLIPIDEMIA, UNSPECIFIED (4) HTN (hypertension) Assessment/Plan: Bp stable Cont lisinopril Code(s): I10 - ESSENTIAL (PRIMARY) HYPERTENSION (5) Hypothyroidism Assessment/Plan: Cont levothyroxine Code(s): E03.9 - HYPOTHYROIDISM, UNSPECIFIED
[2018-04-05] MEDS: ACETAMINOPHEN 325 MG TABLET (FP) PO PRN ×3 (04:10→21:59)
[2018-04-05] MEDS ORDERED: PT OWN MED DRAWER 7, Y5N ONE ×2 (05:39→12:40)
[2018-04-05] MEDS: LEVOTHYROXINE 25 MCG, LEVOTHYROXINE 112 MCG PO SCH (06:10)
[2018-04-05 08:02] LABS: BASO % 0.8 % (0-2.0); EOS % 1.8 % (0-4.5); HEMATOCRIT 43.1 % (32.4-45.2); HEMOGLOBIN 14.4 GM/dL (10.7-15.3); LYMPH % 15.7 % (8-40); MCH 29.7 pg (25.7-33.7); MCHC 33.3 g/dl (32.0-36.0); MEAN CELL VOLUME 89.1 fl (80-96); MEAN PLT VOLUME 7.2 fl (7.5-11.1); MONO % 10.5 % (3.8-10.2); NEUT % 71.2 % (42.8-82.8); PLATELET COUNT 347 K/MM3 (134-434); RBC 4.83 M/mm3 (3.60-5.2); RDW 14.9 % (11.6-15.6); WHITE BLOOD COUNT 8.9 K/mm3 (4.0-10.0)
[2018-04-05] MEDS: ESCITALOPRAM OXALATE 10 MG TABLET (FP) PO SCH (09:33)
[2018-04-05] MEDS: LISINOPRIL 20 MG TABLET (FP) PO SCH (09:33)
[2018-04-05] MEDS: ALPRAZolam 0.25 MG TABLET PO SCH ×2 (09:33→21:17)
[2018-04-05] MEDS: IBUPROFEN 600 MG TABLET (FP) PO PRN ×2 (09:33→18:26)
[2018-04-05] MEDS: NYSTATIN 100,000 UNIT/GM TOPICAL CREAM 15 GM TUBE TP SCH ×2 (09:35→21:18)
--- NOTE | 2018-04-05 15:00 | PN ---
Progress Note, Physician History of Present Illness: Pt states she if feeling better today. Still with some back pain but no other specific complaints. - Current Medication List Current Medications: Active Medications Acetaminophen (Tylenol -) 650 mg PO Q6H PRN PRN Reason: FEVER Last Admin: 04/05/18 12:28 Dose: 650 mg Alprazolam (Xanax -) 0.25 mg PO BID [facility] Last Admin: 04/05/18 09:33 Dose: 0.25 mg Atorvastatin Calcium (Lipitor -) 10 mg PO HS [facility] Last Admin: 04/04/18 21:29 Dose: 10 mg Escitalopram Oxalate (Lexapro -) 10 mg PO DAILY [facility] Last Admin: 04/05/18 09:33 Dose: 10 mg Ibuprofen (Motrin -) 600 mg PO Q8H PRN PRN Reason: PAIN- Last Admin: 04/05/18 09:33 Dose: 600 mg Levofloxacin (Levaquin -) 500 mg PO DAILY@0600 [facility] Last Admin: 04/05/18 06:11 Dose: 500 mg Levothyroxine Sodium 25 mcg/ (Levothyroxine Sodium 112 mcg) 137 mcg PO DAILY@ 0700 [facility] Last Admin: 04/05/18 06:10 Dose: 137 mcg Lisinopril (Prinivil) 20 mg PO DAILY [facility] Last Admin: 04/05/18 09:33 Dose: 20 mg Loperamide HCl (Imodium -) 2 mg PO HS PRN PRN Reason: DIARRHEA Loperamide HCl (Imodium -) 4 mg PO HS [facility] Last Admin: 04/04/18 21:42 Dose: Not Given Nystatin (Mycostatin Cream -) 1 applic TP BID [facility] Last Admin: 04/05/18 09:35 Dose: 1 applic - Objective Vital Signs: Vital Signs Temperature 98.3 F 04/05/18 09:40 Pulse Rate 90 04/05/18 09:40 Respiratory Rate 18 04/05/18 09:40 Blood Pressure 160/90 04/05/18 09:40 O2 Sat by Pulse Oximetry (%) 95 04/05/18 09:00 Constitutional: Yes: No Distress, Calm Cardiovascular: Yes: Regular Rate and Rhythm Respiratory: Yes: Regular Gastrointestinal: Yes: Normal Bowel Sounds, Soft Edema: No Neurological: Yes: Alert, Oriented Labs: CBC, BMP 04/05/18 07:49 04/03/18 12:55 Problem List - Problems (1) Fall Code(s): W19.XXXA - UNSPECIFIED FALL, INITIAL ENCOUNTER (2) HLD (hyperlipidemia) Code(s): E78.5 - HYPERLIPIDEMIA, UNSPECIFIED (3) HTN (hypertension) Code(s): I10 - ESSENTIAL (PRIMARY) HYPERTENSION Assessment/Plan leukocytosis s/p Fall HTN HLD -- wbc trend down to normal, afebrile today -- cont. Levaquin empirically po
--- NOTE | 2018-04-05 18:49 | PN ---
Progress Note, Physician History of Present Illness: Pt in bed and unable to ambulate - Current Medication List Current Medications: Active Medications Acetaminophen (Tylenol -) 650 mg PO Q6H PRN PRN Reason: FEVER Last Admin: 04/05/18 12:28 Dose: 650 mg Alprazolam (Xanax -) 0.25 mg PO BID [facility] Last Admin: 04/05/18 09:33 Dose: 0.25 mg Atorvastatin Calcium (Lipitor -) 10 mg PO HS [facility] Last Admin: 04/04/18 21:29 Dose: 10 mg Escitalopram Oxalate (Lexapro -) 10 mg PO DAILY [facility] Last Admin: 04/05/18 09:33 Dose: 10 mg Ibuprofen (Motrin -) 600 mg PO Q8H PRN PRN Reason: PAIN- Last Admin: 04/05/18 18:26 Dose: 600 mg Levofloxacin (Levaquin -) 500 mg PO DAILY@0600 [facility] Last Admin: 04/05/18 06:11 Dose: 500 mg Levothyroxine Sodium 25 mcg/ (Levothyroxine Sodium 112 mcg) 137 mcg PO DAILY@ 0700 [facility] Last Admin: 04/05/18 06:10 Dose: 137 mcg Lisinopril (Prinivil) 20 mg PO DAILY [facility] Last Admin: 04/05/18 09:33 Dose: 20 mg Loperamide HCl (Imodium -) 2 mg PO HS PRN PRN Reason: DIARRHEA Loperamide HCl (Imodium -) 4 mg PO HS [facility] Last Admin: 04/04/18 21:42 Dose: Not Given Nystatin (Mycostatin Cream -) 1 applic TP BID [facility] Last Admin: 04/05/18 09:35 Dose: 1 applic - Objective Vital Signs: Vital Signs Temperature 98.3 F 04/05/18 18:00 Pulse Rate 98 H 04/05/18 18:00 Respiratory Rate 20 04/05/18 18:00 Blood Pressure 116/70 04/05/18 18:00 O2 Sat by Pulse Oximetry (%) 95 04/05/18 09:00 Neck: Yes: WNL, Supple Cardiovascular: Yes: WNL, Regular Rate and Rhythm Respiratory: Yes: WNL, Regular, CTA Bilaterally Gastrointestinal: Yes: WNL, Normal Bowel Sounds, Soft Labs: CBC, BMP 04/05/18 07:49 04/03/18 12:55 Problem List - Problems (1) Leukocytosis Assessment/Plan: Due to UTI WBC is now normal Cont PO levaquin Code(s): D72.829 - ELEVATED WHITE BLOOD CELL COUNT, UNSPECIFIED (2) Fall Assessment/Plan: Pt w/ intractable back/knee pain Probably would benefit from STR Code(s): W19.XXXA - UNSPECIFIED FALL, INITIAL ENCOUNTER (3) HTN (hypertension) Assessment/Plan: Bp stable Cont lisinopril Code(s): I10 - ESSENTIAL (PRIMARY) HYPERTENSION (4) HLD (hyperlipidemia) Assessment/Plan: Cont lipitor Code(s): E78.5 - HYPERLIPIDEMIA, UNSPECIFIED (5) Hypothyroidism Assessment/Plan: Cont levothyroxine Code(s): E03.9 - HYPOTHYROIDISM, UNSPECIFIED
[2018-04-05] MEDS ORDERED: ZOLPIDEM TARTRATE 5 MG TABLET PO PRN (20:22)
[2018-04-05] MEDS: ATORVASTATIN CA 10 MG TABLET (FP) PO SCH (21:17)
[2018-04-05] MEDS: LOPERAMIDE HCL 2 MG CAPSULE PO SCH (21:20)
[2018-04-06] MEDS ORDERED: PT OWN MED DRAWER 7, Y5N ONE (05:38)
[2018-04-06] MEDS: LEVOTHYROXINE 25 MCG, LEVOTHYROXINE 112 MCG PO SCH (06:10)
[2018-04-06] MEDS: IBUPROFEN 600 MG TABLET (FP) PO PRN (06:13)
[2018-04-06] MEDS: ALPRAZolam 0.25 MG TABLET PO SCH (09:46)
[2018-04-06] MEDS: LISINOPRIL 20 MG TABLET (FP) PO SCH (09:46)
[2018-04-06] MEDS: ESCITALOPRAM OXALATE 10 MG TABLET (FP) PO SCH (09:46)
[2018-04-06] MEDS: NYSTATIN 100,000 UNIT/GM TOPICAL CREAM 15 GM TUBE TP SCH (09:46)
[2018-04-06] MEDS: ACETAMINOPHEN 325 MG TABLET (FP) PO PRN (11:42)
--- NOTE | 2018-04-06 13:54 | PN ---
Progress Note, Physician History of Present Illness: patient stable doing well wbc has normalized - Current Medication List Current Medications: Active Medications Acetaminophen (Tylenol -) 650 mg PO Q6H PRN PRN Reason: FEVER Last Admin: 04/06/18 11:42 Dose: 650 mg Alprazolam (Xanax -) 0.25 mg PO BID [facility] Last Admin: 04/06/18 09:46 Dose: 0.25 mg Atorvastatin Calcium (Lipitor -) 10 mg PO HS [facility] Last Admin: 04/05/18 21:17 Dose: 10 mg Escitalopram Oxalate (Lexapro -) 10 mg PO DAILY [facility] Last Admin: 04/06/18 09:46 Dose: 10 mg Ibuprofen (Motrin -) 600 mg PO Q8H PRN PRN Reason: PAIN- Last Admin: 04/06/18 06:13 Dose: 600 mg Levofloxacin (Levaquin -) 500 mg PO DAILY@0600 [facility] Last Admin: 04/06/18 06:10 Dose: 500 mg Levothyroxine Sodium 25 mcg/ (Levothyroxine Sodium 112 mcg) 137 mcg PO DAILY@ 0700 [facility] Last Admin: 04/06/18 06:10 Dose: 137 mcg Lisinopril (Prinivil) 20 mg PO DAILY [facility] Last Admin: 04/06/18 09:46 Dose: 20 mg Loperamide HCl (Imodium -) 2 mg PO HS PRN PRN Reason: DIARRHEA Loperamide HCl (Imodium -) 4 mg PO HS [facility] Last Admin: 04/05/18 21:20 Dose: Not Given Nystatin (Mycostatin Cream -) 1 applic TP BID [facility] Last Admin: 04/06/18 09:46 Dose: 1 applic Zolpidem Tartrate (Ambien -) 5 mg PO HS PRN PRN Reason: INSOMNIA Last Admin: 04/05/18 22:00 Dose: 5 mg - Objective Vital Signs: Vital Signs Temperature 98.0 F 04/06/18 09:10 Pulse Rate 95 H 04/06/18 09:10 Respiratory Rate 18 04/06/18 09:10 Blood Pressure 160/71 04/06/18 09:10 O2 Sat by Pulse Oximetry (%) 96 04/06/18 09:10 Constitutional: Yes: No Distress, Calm Neck: Yes: Supple Cardiovascular: Yes: S1, S2 Respiratory: Yes: Regular, CTA Bilaterally Musculoskeletal: Yes: WNL Extremities: Yes: WNL Neurological: Yes: Alert, Oriented Psychiatric: Yes: Alert, Oriented Labs: CBC, BMP 04/05/18 07:49 04/03/18 12:55 Assessment/Plan Problem List - Problems (1) Fall Code(s): W19.XXXA - UNSPECIFIED FALL, INITIAL ENCOUNTER (2) HTN (hypertension) Code(s): I10 - ESSENTIAL (PRIMARY) HYPERTENSION (3) HLD (hyperlipidemia) Code(s): E78.5 - HYPERLIPIDEMIA, UNSPECIFIED 4 uti plan complete the abx course rest as per the team
--- NOTE | 2018-04-06 15:10 | DS ---
Physical Examination Vital Signs: Vital Signs Temperature 98.0 F 04/06/18 09:10 Pulse Rate 95 H 04/06/18 09:10 Respiratory Rate 18 04/06/18 09:10 Blood Pressure 160/71 04/06/18 09:10 O2 Sat by Pulse Oximetry (%) 96 04/06/18 09:10 Constitutional: Yes: No Distress HENT: Yes: Atraumatic Neck: Yes: Supple Cardiovascular: Yes: Regular Rate and Rhythm Respiratory: Yes: CTA Bilaterally Gastrointestinal: Yes: Normal Bowel Sounds Extremities: Yes: WNL Neurological: Yes: Alert, Oriented Labs: CBC, BMP 04/05/18 07:49 04/03/18 12:55 Discharge Summary Reason For Visit: PAIN AGGRAVATED BY WALKING Current Active Problems Fall (Acute) HLD (hyperlipidemia) (Acute) HTN (hypertension) (Acute) Hypothyroidism (Acute) Leukocytosis (Acute) Pain aggravated by walking (Acute) Condition: Guarded - Instructions Diet, Activity, Other Instructions: tylenol 650 q6h prn for pain Referrals: Angie Benson MD [Primary Care Provider] - Paul Holland MD [Staff Physician] - Fatemeh Patel MD [Staff Physician] - Disposition: [facility] - Home Medications Comprehensive Discharge Medication List: Ambulatory Orders Escitalopram Oxalate 10 mg PO DAILY 04/02/18 Imodium - 2 mg PO HS 04/02/18 Levothyroxine [Synthroid -] 137 mcg PO DAILY 04/02/18 Lisinopril [Zestril] 20 mg PO DAILY 04/02/18 Simvastatin 20 mg PO HS 04/02/18 Xanax 0.25 mg PO BID 04/02/18 Zolpidem Tartrate [Ambien] 5 mg PO DAILY 04/02/18 Levofloxacin [Levaquin] 500 mg PO DAILY #5 tablet 04/03/18
[2018-04-06 15:53] VITALS: BP 147/78; PULSE 88; TEMP 98.3
== END 2018-04-06 16:53 | DRG 552 ==
LOC: JER 15:00 → JERBED 18:46 → J5S 04-02 08:28 → OBSVTOIN 04-03 18:30
PROVIDERS: ADMIT Internal Medicine; ATTEND Internal Medicine
DX: M51.36 Other intervertebral disc degeneration, lumbar region (principal); S32.029A Unspecified fracture of second lumbar vertebra, initial encounter for closed fracture; S22.089A Unspecified fracture of T11-T12 vertebra, initial encounter for closed fracture; Z68.41 Body mass index [BMI] 40.0-44.9, adult; N39.0 Urinary tract infection, site not specified; M54.5 Low back pain; I10 Essential (primary) hypertension; E78.5 Hyperlipidemia, unspecified; F17.210 Nicotine dependence, cigarettes, uncomplicated; M17.0 Bilateral primary osteoarthritis of knee; M16.11 Unilateral primary osteoarthritis, right hip; M51.34 Other intervertebral disc degeneration, thoracic region; M43.07 Spondylolysis, lumbosacral region; E66.9 Obesity, unspecified; D72.829 Elevated white blood cell count, unspecified; I25.10 Atherosclerotic heart disease of native coronary artery without angina pectoris; E03.9 Hypothyroidism, unspecified; R26.9 Unspecified abnormalities of gait and mobility; W18.39XA Other fall on same level, initial encounter; Y92.098 Other place in other non-institutional residence as the place of occurrence of the external cause
CPT/HCPCS: 36415; 70450-TC; 72100-TC-FY; 72131-TC; 72170-TC-FY; 73562-TC-LT-FY; 73562-TC-RT-FY; 80048; 80053; 81003; 82550; 82962; 83874; 84443; 84484; 85025; 86593; 87086; 90688; 93005; 93010; 97116-GP; 97162-GP; 99282-25; G0008; G0378

== ENCOUNTER 2019-08-10 13:37 | Inpatient (IN) | payer OTHER, BC ==
--- NOTE | 2019-08-10 13:45 | PDOC ---
Rapid Medical Evaluation Time Seen by Provider: 08/10/19 13:39 Medical Evaluation: Allergies Allergy/AdvReac Type Severity Reaction Status Date / Time No Known Allergies Allergy Verified 04/01/18 15:39 08/10/19 13:42 CC: SOB with ble swelling PE: 4 word dyspnea. Fine crackles left base. 2+ pitting edema b/l. Orders: CHF w/u Patient will proceed to ED for further evaluation. Discharge Disposition - Diagnosis SOB (shortness of breath) - Referrals - Patient Instructions - Post Discharge Activity
--- NOTE | 2019-08-10 14:38 | PDOC ---
History of Present Illness - General Chief Complaint: Shortness of Breath Stated Complaint: SWOLLEN LEGS Time Seen by Provider: 08/10/19 13:39 History Source: Patient, Family (Pt's daughters present at bedside.) Exam Limitations: No Limitations - History of Present Illness Initial Comments: HPI: 83 y/o female presenting to [facility] ER complaining of shortness of breath and lower extremity swelling, which have been unchanged over the past several weeks. Pt was started on home oxygen at 3 LPM by her PMD three weeks ago. Reports SOB is much worse with mild exertion. Denies worsening dyspnea, orthopnea, lower extremity swelling, or paroxysmal nocturnal dyspnea. Denies fevers, chills, or productive cough. Pt, family, and PMD (Dr. Caldera) would like the pt admitted to the hospital for shortness of breath and SNF placement. Medical Hx: - HTN - HLD - Osteoarthritis, R hand, R hip - H/o Compression Fracture T11-12 - Hypothyroidism - Major Depressive Disorder - Obesity Surgical Hx: - Cholecystectomy Review of Systems: 10 point review of systems completed. All systems negative except as noted above. Physical Examination: Vital signs and nursing notes reviewed. Constitutional- Obese elderly adult female in no acute distress or obvious discomfort. Found semi-fowlers on hospital bed. Head- Normocephalic. No obvious external signs of trauma. Neck- Supple, trachea is midline. Cardiovascular / Chest- Regular rate and regular rhythm. No murmur, rubs, clicks, or gallops. Peripheral pulses- radial pulses full. 3+ pretibial edema bilaterally. Respiratory- Nasal cannula in place. Tachypenic breathing. Equal chest rise and fall. Breath sounds present bilaterally. Bibasilar rales in posterior perdomo. Gastrointestinal- abdomen is soft, non-tender, non-distended. Exam limited by large pannus. Neuro- Alert and oriented x4. Moving all four extremities spontaneously. No facial asymmetry. No slurred speech. Skin- Warm, dry, and intact. Psych- Affect- appropriate. Mood- normal. Speech was non-labored, non- pressured. MDM: 83 y/o female presenting with shortness of breath in setting of new supplemental oxygen requirement. Afebrile. Vitals unremarkable for hypotension or tachycardia. Physical exam as described above. Pt's PMD, Dr. Caldera, arrived in the ED shortly after the pt and entered medication orders. Did not requested any additional laboratory or imaging studies. Will admit the pt to his service on med/surg. CXR and laboratory studies all pending at the time of admission. EKG unremarkable for ischemic findings. 08/10/19 16:43 Dr. Dow communicated to the pt's RN that the pt's ad mission should be upgraded to telemetry because of her dyspnea. Reviewed pt's CXR and laboratory data after admission was certified. No emergent or critical findings noted. Julian Manzanares M.D., PGY2 Emergency Medicine Resident Past History - Past Medical History Allergies/Adverse Reactions: Allergies Allergy/AdvReac Type Severity Reaction Status Date / Time No Known Allergies Allergy Verified 08/10/19 16:12 Home Medications: Ambulatory Orders Levothyroxine [Synthroid -] 137 mcg PO DAILY 04/02/18 Lisinopril [Zestril] 20 mg PO DAILY 04/02/18 Simvastatin 20 mg PO HS 04/02/18 COPD: No GI Disorders: (chronic diarrhea) HTN: Yes Hypercholesterolemia: Yes Thyroid Disease: Yes (hypothyroidism) - Surgical History Cholecystectomy: Yes (gall bladder sx yrs ago) - Psycho Social/Smoking Cessation Hx Smoking History: Never smoked Have you smoked in the past 12 months: Yes Number of Cigarettes Smoked Daily: 3 If you are a former smoker, when did you quit?: may this yr Cigars Per Day: 5 Hx Alcohol Use: No Drug/Substance Use Hx: No *Physical Exam - Vital Signs Last Vital Signs Temp Pulse Resp BP Pulse Ox 99.3 F 62 20 151/64 96 08/10/19 13:41 08/10/19 13:41 08/10/19 13:41 08/10/19 13:41 08/10/19 13:41 ED Treatment Course - LABORATORY CBC & Chemistry Diagram: 08/11/19 06:45 08/11/19 06:45 Discharge - Discharge Information Problems reviewed: Yes Clinical Impression/Diagnosis: SOB (shortness of breath) Condition: Stable - Admission Yes - Follow up/Referral - Patient Discharge Instructions - Post Discharge Activity
--- NOTE | 2019-08-10 15:04 | HP ---
Admitting History and Physical - Admission Chief Complaint: Acute exacerbation of shortness of breath, and edema of lower extremities. History of Present Illness: This 83 yr old w/f with PMH of hypothyroidism, COPD, wedge compression fractures of T11-T12, L2, and L4 with routine healing, spinal stenosis of lumbar spine without neurogenic claudication, HTN, HLD, chronic low back pain, macular degeneration, hx of falling, DJD of knees, effusion of the right hand, right Achilles tendinitis admitted via ER with an acute exacerbation of dyspnea and edema of lower extremities. History Source: Patient, Family Member, Medical Record Limitations to Obtaining History: No Limitations - Past Medical History Cardiovascular: Yes: HTN, Hyperlipdemia Pulmonary: Yes: COPD Gastrointestinal: Yes: Constipation Musculoskeletal: Yes: Chronic low back pain, Osteoarthritis Endocrine: Yes: Hypothyroidism - Smoking History Smoking history: Never smoked Have you smoked in the past 12 months: Yes Aproximately how many cigarettes per day: 3 If you are a former smoker, when did you quit?: may this yr - Alcohol/Substance Use Hx Alcohol Use: No Home Medications - Allergies Allergies/Adverse Reactions: Allergies Allergy/AdvReac Type Severity Reaction Status Date / Time No Known Allergies Allergy Verified 08/10/19 16:12 - Home Medications Home Medications: Ambulatory Orders Levothyroxine [Synthroid -] 137 mcg PO DAILY 04/02/18 Lisinopril [Zestril] 20 mg PO DAILY 04/02/18 Simvastatin 20 mg PO HS 04/02/18 Review of Systems - Review of Systems Constitutional: reports: Weakness Eyes: reports: No Symptoms HENT: reports: No Symptoms. denies: Difficult Swallowing, Ear Discharge, Ear Pain, Epistaxis, Gingival Bleeding, Hearing Loss, Mouth Swelling, Nasal Congestion, Ocular Prosthesis, Throat Pain, Toothache, Ringing in Ears, Other Neck: reports: Stiffness Cardiovascular: reports: Edema, Shortness of Breath Respiratory: reports: Orthopnea, Snoring, SOB, SOB on Exertion Gastrointestinal: reports: Constipation Genitourinary: reports: No Symptoms Breasts: reports: No Symptoms Reported Musculoskeletal: reports: Back Pain, Joint Pain, Joint Swelling, Muscle Weakness , Other (right Achilles tendinitis) Integumentary: reports: No Symptoms Neurological: reports: Unsteady Gait, Weakness Endocrine: reports: Unexplained Weight Gain Hematology/Lymphatic: reports: No Symptoms Psychiatric: reports: Anxiety Physical Examination Vital Signs: Vital Signs Temperature 99.3 F 08/10/19 13:41 Pulse Rate 62 08/10/19 13:41 Respiratory Rate 20 08/10/19 13:41 Blood Pressure 151/64 08/10/19 13:41 O2 Sat by Pulse Oximetry (%) 96 08/10/19 13:41 Constitutional: Yes: Well Nourished, Calm, Mild Distress Eyes: Yes: Conjunctiva Clear, EOM Intact HENT: Yes: Atraumatic, Normocephalic Neck: Yes: Supple, Trachea Midline Cardiovascular: Yes: Regular Rate and Rhythm Respiratory: Yes: Accessory Muscle Use, Diminished, On Nasal O2, Orthopnea, Rales, Rhonchi, SOB, SOB on Exertion, Tachypnea Gastrointestinal: Yes: Normal Bowel Sounds, Soft ...Rectal Exam: Yes: Deferred Renal/: Yes: WNL Breast(s): Yes: WNL Musculoskeletal: Yes: Muscle Weakness Edema: Yes Edema: LLE: 2+, RLE: 2+ Peripheral Pulses WNL: Yes Peripheral Pulses: Left Radial: 2+, Right Radial: 2+ Integumentary: Yes: WNL Neurological: Yes: Alert, Oriented, Unsteady Gait, Weakness ...Motor Strength: LUE (muscle weakness), LLE (muscle weakness), RUE (muscle weakness), RLE (muscle weakness) Psychiatric: Yes: WNL Problem List - Problems (1) Edema of lower extremity Code(s): R60.0 - LOCALIZED EDEMA (2) Generalized muscle weakness Code(s): M62.81 - MUSCLE WEAKNESS (GENERALIZED) (3) SOB (shortness of breath) Code(s): R06.02 - SHORTNESS OF BREATH (4) COPD (chronic obstructive pulmonary disease) Code(s): J44.9 - CHRONIC OBSTRUCTIVE PULMONARY DISEASE, UNSPECIFIED (5) HLD (hyperlipidemia) Code(s): E78.5 - HYPERLIPIDEMIA, UNSPECIFIED (6) HTN (hypertension) Code(s): I10 - ESSENTIAL (PRIMARY) HYPERTENSION (7) Hypothyroidism Code(s): E03.9 - HYPOTHYROIDISM, UNSPECIFIED (8) Wedge compression fracture of T11 vertebra Code(s): S22.080A - WEDGE COMPRESSION FRACTURE OF T11-T12 VERTEBRA, INIT (9) Wedge compression fracture of L2 vertebra Code(s): S32.020A - WEDGE COMPRESSION FRACTURE OF SECOND LUMBAR VERTEBRA, INIT (10) Wedge compression fracture of L4 vertebra Code(s): S32.040A - WEDGE COMPRESSION FRACTURE OF FOURTH LUMBAR VERTEBRA, INIT (11) Chronic low back pain Code(s): M54.5 - LOW BACK PAIN; G89.29 - OTHER CHRONIC PAIN (12) History of falling Code(s): Z91.81 - HISTORY OF FALLING (13) Arthritis of both knees Code(s): M17.0 - BILATERAL PRIMARY OSTEOARTHRITIS OF KNEE (14) Anxiety Code(s): F41.9 - ANXIETY DISORDER, UNSPECIFIED (15) Spinal stenosis of lumbar region Code(s): M48.061 - SPINAL STENOSIS, LUMBAR REGION WITHOUT NEUROGENIC DAVID (16) Right Achilles tendinitis Code(s): M76.61 - ACHILLES TENDINITIS, RIGHT LEG Assessment/Plan Assessment/plan: acute exacerbation of dyspnea, acute exacerbation of edema of lower extremities, acute right Achilles tendinitis, history of falling; DVT prophylaxis, physical therapy, SCDs, oxygen 3L/min via nasal cannula, IV Lasix one dose, consult to Pulmonary, consult to Cardiology, fall precautions.
[2019-08-10] MEDS ORDERED: ACETAMINOPHEN 325 MG TABLET (FP) PO PRN (15:05)
[2019-08-10] MEDS ORDERED: ALBUTEROL SO4 2.5/IPRATROPIUM 0.5 INH SOL 3 ML VIAL.NEB. NEB PRN (15:06)
--- NOTE | 2019-08-10 15:32 | PDOC ---
Attending Attestation - Resident Resident Name: BishopJulian - ED Attending Attestation I have performed the following: I have examined & evaluated the patient, The case was reviewed & discussed with the resident, I agree w/resident's findings & plan - HPI HPI: 08/10/19 17:19 83 y/o female presenting to [facility] ER complaining of shortness of breath and lower extremity swelling, which have been unchanged over the past several weeks. Pt was started on home oxygen at 3 LPM by her PMD three weeks ago. Reports SOB is much worse with mild exertion. Denies worsening dyspnea, orthopnea, lower extremity swelling, or paroxysmal nocturnal dyspnea. Denies fevers, chills, or productive cough. Pt, family, and PMD (Dr. Caldera) would like the pt admitted to the hospital for shortness of breath and SNF placement. Medical Hx: - HTN - HLD - Osteoarthritis, R hand, R hip - H/o Compression Fracture T11-12 - Hypothyroidism - Major Depressive Disorder - Obesity - Physicial Exam PE: 08/10/19 15:31 Agree with the resident's HPI and PE as documented in the electronic medical record. NAD, well appearing, EOMI, PERRL, nl conjunctiva, anicteric; neck supple. lungs clear, RRR, abdomen soft nontender. no rebound, guarding. Back nontender. ROJAS x4, no focal neuro deficits. No peripheral edema. normal color for ethnicity , WWP. - Medical Decision Making 08/10/19 17:19 Vital Signs Temp Pulse Resp BP Pulse Ox 99.3 F 81 29 H 135/59 L 96 08/10/19 13:41 08/10/19 16:43 08/10/19 16:43 08/10/19 16:43 08/10/19 16:43 DDx SOB: ACS, PE, PTX, CHF, COPD exac, pulmonary edema, pleurisy, pneumonia, viral syndrome. effusion. anemia, electrolyte/metabolic derangements. no cp, no syncope basic labs and lytes wnl, reassuring neg trop unremarkable bnp No prior chest x-ray, there is apical lordotic projection with elevated right hemidiaphragm, cardiomegaly, normal heart and prominent hilar markings no acute chest pathology is noted. Being admitted to primary doctor service for worsening shortness of breath, lower extremity edema, tendinitis and frequent falls unsafe to be at home. Titrate oxygen to effect, Lasix, cardiology input pulmonary consultation as inpatient. admitting to Dr Celaya. 08/10/19 17:21 Heart Score/ECG Review #1 ECG reviewed & interpreted by me at: 15:15 General ECG Interpretation: Sinus Rhythm, Normal Rate, Normal Intervals 08/10/19 17:22 EKG normal sinus rhythm 89 bpm, no interval abnormalities, narrow QRS, ST and T wave segments and morphology normal. Nonspecific T wave abnormalities
[2019-08-10] MEDS ORDERED: FUROSEMIDE 40 MG/4 ML INJECTABLE VIAL IVPUSH ONE (16:09)
--- NOTE | 2019-08-10 16:25 | EKG ---
Test Reason : Blood Pressure : / mmHG Vent. Rate : 089 BPM Atrial Rate : 089 BPM P-R Int : 148 ms QRS Dur : 072 ms QT Int : 386 ms P-R-T Axes : 043 -11 036 degrees QTc Int : 469 ms NORMAL SINUS RHYTHM POSSIBLE INFERIOR INFARCT (CITED ON OR BEFORE 01-APR-2018) ABNORMAL ECG Confirmed by MD Montoya Edward ([id number]) on 08/10/2019 4:24:55 PM Referred By: Confirmed By:Ole Montoya MD
[2019-08-10] MEDS ORDERED: FUROSEMIDE 40 MG/4 ML INJECTABLE VIAL ONE (16:31)
[2019-08-10 16:32] LABS: BASO % 0.8 % (0-2.0); EOS % 1.7 % (0-4.5); HEMATOCRIT 40.1 % (32.4-45.2); HEMOGLOBIN 12.6 GM/dL (10.7-15.3); LYMPH % 15.4 % (8-40); MCH 27.9 pg (25.7-33.7); MCHC 31.5 g/dl (32.0-36.0); MEAN CELL VOLUME 88.4 fl (80-96); MEAN PLT VOLUME 7.6 fl (7.5-11.1); NEUT % 71.1 % (42.8-82.8); PLATELET COUNT 284 K/MM3 (134-434); RBC 4.54 M/mm3 (3.60-5.2); WHITE BLOOD COUNT 9.8 K/mm3 (4.0-10.0)
[2019-08-10 16:43] LABS: INR 0.86 (0.83-1.09); PROTHROMBIN TIME (PATIENT) 10.1 SEC (9.7-13.0)
[2019-08-10 16:46] LABS: ACTIVATED PTT 21.7 SECONDS (25.2-36.5)
[2019-08-10] MEDS ORDERED: TEMAZEPAM 15 MG CAPSULE PO PRN (16:46)
[2019-08-10 17:03] LABS: PHOSPHOROUS 3.9 mg/dL (2.5-4.9)
[2019-08-10 17:04] LABS: BILIRUBIN,TOTAL 0.4 mg/dL (0.2-1); BLOOD UREA NITROGEN 14.3 mg/dL (7-18); CALCIUM 8.5 mg/dL (8.5-10.1); CREATININE 0.8 mg/dL (0.55-1.3); N-TERMINAL BNP 239.5 pg/ml (5-450); POTASSIUM 4.8 mmol/L (3.5-5.1); TOT PROT 6.4 g/dl (6.4-8.2)
[2019-08-10] MEDS ORDERED: GABAPENTIN 100 MG CAPSULE ONE (17:33)
[2019-08-10] MEDS: GABAPENTIN 100 MG CAPSULE PO SCH ×2 (17:34→22:13)
[2019-08-10] MEDS: ARTIFICIAL TEARS (POLYVINYL ALCOHOL) OPTH DROPS OU SCH ×2 (18:04→23:15)
[2019-08-10] MEDS ORDERED: TEMAZEPAM 15 MG CAPSULE PO SCH (21:00)
[2019-08-10] MEDS ORDERED: MELATONIN 5 MG TABLETS PO SCH (22:00)
[2019-08-10] MEDS ORDERED: PT OWN MED DRAWER 7, Y5N ONE (22:08)
[2019-08-10] MEDS: ENOXAPARIN NA (PORCINE) 40 MG/0.4 ML DISP.SYRIN SQ SCH (22:13)
[2019-08-10 23:12] VITALS: BMI 48.7
[2019-08-10] MEDS: BACLOFEN 10 MG TABLET (FP) PO SCH (23:15)
[2019-08-10] MEDS: traZODone HCL 100 MG TABLET (FP) PO SCH (23:18)
[2019-08-11] MEDS ORDERED: LEVOTHYROXINE NA 25 MCG TABLET (FP) ONE (05:49)
[2019-08-11] MEDS ORDERED: LEVOTHYROXINE NA 112 MCG TABLET (FP) ONE (05:49)
[2019-08-11] MEDS ORDERED: LEVOTHYROXINE NA 100 MCG TABLET (FP) PO SCH (06:00)
[2019-08-11] MEDS: GABAPENTIN 100 MG CAPSULE PO SCH ×3 (06:20→21:17)
[2019-08-11] MEDS: LEVOTHYROXINE 112 MCG, LEVOTHYROXINE 25 MCG PO SCH (06:20)
[2019-08-11] MEDS: ARTIFICIAL TEARS (POLYVINYL ALCOHOL) OPTH DROPS OU SCH ×3 (06:21→21:17)
[2019-08-11 07:20] LABS: BASO % 0.5 % (0-2.0); HEMATOCRIT 36.8 % (32.4-45.2); HEMOGLOBIN 11.9 GM/dL (10.7-15.3); LYMPH % 22.2 % (8-40); MCH 28.1 pg (25.7-33.7); MCHC 32.2 g/dl (32.0-36.0); MEAN CELL VOLUME 87.1 fl (80-96); MEAN PLT VOLUME 7.2 fl (7.5-11.1); MONO % 11.1 % (3.8-10.2); NEUT % 63.2 % (42.8-82.8); PLATELET COUNT 247 K/MM3 (134-434); RBC 4.22 M/mm3 (3.60-5.2); RDW 18.2 % (11.6-15.6)
[2019-08-11 07:41] LABS: ALBUMIN 2.8 g/dl (3.4-5.0); BILIRUBIN,TOTAL 0.9 mg/dL (0.2-1); BLOOD UREA NITROGEN 15.6 mg/dL (7-18); CALCIUM 8.9 mg/dL (8.5-10.1); CREATININE 0.8 mg/dL (0.55-1.3); TOT PROT 5.9 g/dl (6.4-8.2)
[2019-08-11] MEDS ORDERED: PT OWN MED DRAWER 7, Y5N ONE ×3 (09:26→22:50)
--- NOTE | 2019-08-11 09:27 | PN ---
Progress Note, Physician Chief Complaint: Patient seen and examined at the bedside, no acute events from last night, diminution of shortness of breath, pain of the right Achilles tendon. History of Present Illness: This 83 yr old w/f with PMH of COPD, morbid obesity, hypothyroidism, wedge compression fractures of T11-T12, L2, and L4, spinal stenosis of the lumbar spine without neurogenic claudication, HTN, HLD, chronic low back pain, macular degeneration, history of falling, DJD of knees, and effusion of the right hand admitted via ER with an acute exacerbation of shortness of breath, and edema of lower extremities. - Current Medication List Current Medications: Active Medications Acetaminophen (Tylenol -) 650 mg PO Q6H PRN PRN Reason: MODERATE PAIN Albuterol/Ipratropium (Duoneb -) 1 amp NEB Q4H PRN PRN Reason: WHEEZING Artificial Tears (Artificial Tears) 1 drop OU TID REPLACED BY [facility] Last Admin: 08/11/19 06:21 Dose: 1 drop Baclofen (Lioresal -) 10 mg PO DAILY REPLACED BY [facility] Last Admin: 08/10/19 23:15 Dose: 10 mg Duloxetine HCl (Cymbalta -) 60 mg PO DAILY REPLACED BY [facility] Enoxaparin Sodium (Lovenox -) 40 mg SQ DAILY REPLACED BY [facility] Last Admin: 08/10/19 22:13 Dose: 40 mg Gabapentin (Neurontin -) 100 mg PO TID REPLACED BY [facility] Last Admin: 08/11/19 06:20 Dose: 100 mg Levothyroxine Sodium 112 mcg/ (Levothyroxine Sodium 25 mcg) 137 mcg PO DAILY@ 0700 REPLACED BY [facility] Last Admin: 08/11/19 06:20 Dose: 137 mcg Metoprolol Succinate (Toprol Xl -) 50 mg PO DAILY REPLACED BY [facility] Temazepam (Restoril -) 15 mg PO HS PRN PRN Reason: INSOMNIA Trazodone HCl (Desyrel -) 100 mg PO DAILY REPLACED BY [facility] Last Admin: 08/10/19 23:18 Dose: 100 mg - Objective Vital Signs: Vital Signs Temperature 98.4 F 08/11/19 06:38 Pulse Rate 95 H 08/11/19 06:38 Respiratory Rate 18 08/11/19 06:38 Blood Pressure 133/65 08/11/19 06:38 O2 Sat by Pulse Oximetry (%) 97 08/10/19 23:00 Constitutional: Yes: Well Nourished, Calm, Mild Distress Eyes: Yes: Conjunctiva Clear, EOM Intact HENT: Yes: Atraumatic, Normocephalic Neck: Yes: Supple, Trachea Midline Cardiovascular: Yes: Regular Rate and Rhythm Respiratory: Yes: Diminished, On Nasal O2, Orthopnea, SOB, SOB on Exertion, Tachypnea Gastrointestinal: Yes: Normal Bowel Sounds, Soft ...Rectal Exam: Yes: Deferred Genitourinary: Yes: WNL Breast(s): Yes: WNL Musculoskeletal: Yes: Muscle Weakness Extremities: Yes: Other (generalized muscle weakness) Edema: Yes Edema: LLE: 2+, RLE: 2+ Peripheral Pulses WNL: Yes Peripheral Pulses: Left Radial: 2+, Right Radial: 2+, Left Femoral: 2+, Right Femoral: 2+ Integumentary: Yes: WNL Neurological: Yes: Unsteady Gait, Weakness ...Motor Strength: LUE (muscle weakness), LLE (muscle weakness), RUE (muscle weakness), RLE (muscle weakness) Psychiatric: Yes: Alert, Oriented Labs: CBC, BMP 08/11/19 06:45 08/11/19 06:45 INR, PTT INR 0.86 (0.83-1.09) 08/10/19 15:43 - ....Imaging Chest X-ray: Report Reviewed Other: Report Reviewed (Lab data reviewed) Problem List - Problems (1) Edema of lower extremity Code(s): R60.0 - LOCALIZED EDEMA (2) Generalized muscle weakness Code(s): M62.81 - MUSCLE WEAKNESS (GENERALIZED) (3) SOB (shortness of breath) Code(s): R06.02 - SHORTNESS OF BREATH (4) COPD (chronic obstructive pulmonary disease) Code(s): J44.9 - CHRONIC OBSTRUCTIVE PULMONARY DISEASE, UNSPECIFIED (5) HLD (hyperlipidemia) Code(s): E78.5 - HYPERLIPIDEMIA, UNSPECIFIED (6) HTN (hypertension) Code(s): I10 - ESSENTIAL (PRIMARY) HYPERTENSION (7) Hypothyroidism Code(s): E03.9 - HYPOTHYROIDISM, UNSPECIFIED (8) Wedge compression fracture of T11 vertebra Code(s): S22.080A - WEDGE COMPRESSION FRACTURE OF T11-T12 VERTEBRA, INIT (9) Wedge compression fracture of L2 vertebra Code(s): S32.020A - WEDGE COMPRESSION FRACTURE OF SECOND LUMBAR VERTEBRA, INIT (10) Wedge compression fracture of L4 vertebra Code(s): S32.040A - WEDGE COMPRESSION FRACTURE OF FOURTH LUMBAR VERTEBRA, INIT (11) Chronic low back pain Code(s): M54.5 - LOW BACK PAIN; G89.29 - OTHER CHRONIC PAIN (12) History of falling Code(s): Z91.81 - HISTORY OF FALLING (13) Arthritis of both knees Code(s): M17.0 - BILATERAL PRIMARY OSTEOARTHRITIS OF KNEE (14) Anxiety Code(s): F41.9 - ANXIETY DISORDER, UNSPECIFIED (15) Spinal stenosis of lumbar region Code(s): M48.061 - SPINAL STENOSIS, LUMBAR REGION WITHOUT NEUROGENIC DAVID (16) Right Achilles tendinitis Code(s): M76.61 - ACHILLES TENDINITIS, RIGHT LEG Assessment/Plan Assessment/plan: acute exacerbation of shortness of breath, and edema of lower extremities, COPD, acute right Achilles tendinitis, acute insomnia and sleep deprivation, acute generalized muscle weakness, history of falling, mild aortic sclerosis; DVT prophylaxis, physical therapy, consult Pulmonary and Cardiology pending, oxygen 3L/min via nasal cannula, fall precautions.
[2019-08-11] MEDS: DULoxetine HCL 30 MG CAPSULE.DR PO SCH (09:31)
[2019-08-11] MEDS: traZODone HCL 100 MG TABLET (FP) PO SCH (09:31)
[2019-08-11] MEDS: ENOXAPARIN NA (PORCINE) 40 MG/0.4 ML DISP.SYRIN SQ SCH (09:32)
--- NOTE | 2019-08-11 11:16 | ECHO ---
Version: 1 Name: BARRY CHUNG Exam: Adult Echocardiogram Study Date: 08/11/2019, 10:26 AM Age: 83 Years MMode/2D Measurements & Calculations IVSd: 1.18 cm LVIDs: 2.23 cm LVIDd: 3.4 cm LVPWd: 1.01 cm ACS: 1.65 cm Ao root diam: 2.38 cm LVOT diam: 1.99 cm LA dimension: 4.1 cm Doppler Measurements & Calculations MV E max lan: 92.8 cm/sec Med E/e': 11.0 MV A max lan: 92.3 cm/sec Med Peak E' Lan: 8.4 cm/sec MV E/A: 1.01 Lat E/e': 12.6 Lat Peak E' Lan: 7.3 cm/sec MR max P.5 mmHg Ao max P.5 mmHg FAWAD(I,D): 2.30 cm Ao mean P.3 mmHg LV V1 mean: 70.1 cm/sec Ao V2 max: 136.8 cm/sec LV V1 mean P.30 mmHg TR max lan: 146.6 cm/sec TR max P.8 mmHg Left Ventricle The left ventricular size, thickness and function are normal. Ejection Fraction = 65%. The transmitr al spectral Doppler flow pattern is suggestive of pseudonormalization. Right Ventricle The right ventricle is normal in size and function. Atria Normal left and right atrial size and function. Mitral Valve There is mild mitral annular calcification. There is trace mitral regurgitation. Tricuspid Valve The tricuspid valve is normal in structure and function. No tricuspid regurgitation. Aortic Valve There is mild aortic sclerosis.;. Pulmonic Valve The pulmonic valve is not well visualized. Great Vessels The aortic root is normal size. Normal aortic arch, descending and ascending aorta. Pericardium/Pleura There is no pericardial effusion. Summary Statements The left ventricular size, thickness and function are normal Ejection Fraction = 65%. The transmitral spectral Doppler flow pattern is suggestive of pseudonormalization. The right ventricle is normal in size and function. Normal left and right atrial size and function. There is mild mitral annular calcification. There is trace mitral regurgitation. The tricuspid valve is normal in structure and function. No tricuspid regurgitation. There is mild aortic sclerosis.; The pulmonic valve is not well visualized. The aortic root is normal size. Normal aortic arch, descending and ascending aorta There is no pericardial effusion. Jesús Frances 08/11/2019, 11:16 AM Ordering Physician: Matthew Caldera Performed By: Deena Barajas
--- NOTE | 2019-08-11 12:15 | CON.CARD ---
Consult Consult Specialty:: Cardiology Referred by:: Medicine Reason for Consultation:: shortness of breath - History of Present Illness Chief Complaint: shortness of breath, edema History of Present Illness: 83F h/o HTN, HLD, hypothyroidism, compression fractures p/w dyspnea, lower ext swelling x several weeks. Has been on O2 at home 3L NC since 3 weeks ago. Per pt dyspnea worse with mild exertion, no orthopnea, PND. Feels better today, received 1 dose of IV lasix. - Past Medical History Cardio/Vascular: Yes: HTN, Hyperlipdemia Pulmonary: Yes: COPD Gastrointestinal: Yes: Constipation Musculoskeletal: Yes: Chronic low back pain, Osteoarthritis Endocrine: Yes: Hypothyroidism - Alcohol/Substance Use Hx Alcohol Use: No - Smoking History Smoking history: Former smoker Have you smoked in the past 12 months: No Aproximately how many cigarettes per day: 3 If you are a former smoker, when did you quit?: may this yr Home Medications - Allergies Allergies/Adverse Reactions: Allergies Allergy/AdvReac Type Severity Reaction Status Date / Time No Known Allergies Allergy Verified 08/10/19 16:12 - Home Medications Home Medications: Ambulatory Orders Levothyroxine [Synthroid -] 137 mcg PO DAILY 04/02/18 Lisinopril [Zestril] 20 mg PO DAILY 04/02/18 Simvastatin 20 mg PO HS 04/02/18 Family Medical History Family History: Unremarkable Review of Systems - Review of Systems Constitutional: reports: No Symptoms Eyes: reports: No Symptoms HENT: reports: No Symptoms Neck: reports: No Symptoms Cardiovascular: reports: No Symptoms Respiratory: reports: No Symptoms Gastrointestinal: reports: No Symptoms Genitourinary: reports: No Symptoms Musculoskeletal: reports: No Symptoms Integumentary: reports: No Symptoms Neurological: reports: No Symptoms Endocrine: reports: No Symptoms Hematology/Lymphatic: reports: No Symptoms Psychiatric: reports: No Symptoms Vital Signs: Vital Signs Temperature 98.8 F 08/11/19 09:30 Pulse Rate 90 08/11/19 09:30 Respiratory Rate 18 08/11/19 09:30 Blood Pressure 141/80 08/11/19 09:30 O2 Sat by Pulse Oximetry (%) 97 08/10/19 23:00 Constitutional: Yes: No Distress, Calm Eyes: Yes: Conjunctiva Clear, EOM Intact HENT: Yes: Atraumatic, Normocephalic Neck: Yes: Supple Respiratory: Yes: Regular, CTA Bilaterally Gastrointestinal: Yes: Normal Bowel Sounds, Soft Cardiovascular: Yes: Regular Rate and Rhythm Heart Sounds: Yes: S1, S2 Extremities: No: Cold Edema: Yes Edema: LLE: 1+, RLE: 1+ Integumentary: No: Jaundice Neurological: Yes: Alert, Oriented Psychiatric: No: Agitated - Other Data Labs, Other Data: CBC, BMP 08/11/19 06:45 08/11/19 06:45 INR, PTT INR 0.86 (0.83-1.09) 08/10/19 15:43 Troponin, BNP 08/10/19 08/10/19 15:43 15:43 Troponin I < 0.02 B-Natriuretic Peptide 239.5 Troponin, BNP 08/10/19 08/10/19 15:43 15:43 Troponin I < 0.02 B-Natriuretic Peptide 239.5 Assessment/Plan EKG: sinus, nl intervals, no ischemic changes CXR: no acute process echo 08/2019 nl LV function, pseudonormalization (grade II diastolic dysfunction) , mild MAC, tr MR tele: sinus, PVCs dyspnea, edema, acute on chronic diastolic HF -likely component of CHF exac with mild congestion, diastolic dysfunction noted on echo. nl BNP however in setting of obesity -improved with lasix 40 mg IV x1 -still with some dyspnea, Cr stable - will give additional lasix dose today -monitor Cr lytes, daily weights - pulm consult pending HTN - cont home meds HLD - cont statin hypothyroidism - manage per primary
--- NOTE | 2019-08-11 12:15 | PN ---
Progress Note (short form) - Note Progress Note: PULMONARY CONSULTATION DICTATED 08/11/19 IMP DYSPNEA ? COPD MORBID OBESITY ? CARDIAC HYPOTHYROID HTN HLD SUSPECTED OSAS PLAN INHALED BRONCHODILATORS O2 ABG ON RA CHEST CT PFTS OUTPATIENT SLEEP SCREEN DR MICHEL
[2019-08-11] MEDS ORDERED: FUROSEMIDE 40 MG/4 ML INJECTABLE VIAL IVPUSH ONE (12:16)
[2019-08-11] MEDS: LIDOCAINE 5% TOPICAL PATCH TP SCH (12:22)
[2019-08-11] MEDS: BACLOFEN 10 MG TABLET (FP) PO SCH (12:24)
--- NOTE | 2019-08-11 13:03 | CONS ---
PULMONARY CONSULTATION DATE OF CONSULTATION: 08/11/2019 REFERRING PHYSICIAN: Matthew Caldera MD HISTORY OF PRESENT ILLNESS: Patient is an 83-year-old female with a past medical history of COPD, wedge compression fractures T11-12, L2, and L4, hypothyroidism, spinal stenosis, morbid obesity, hyperlipidemia, hypertension, history of tobacco use for approximately 30 years (quit approximately 3 years ago), admitted to [facility] with complaint of a 2-week history of increasing shortness of breath and dyspnea on exertion. Patient denies any complaint of chest pains or palpitations. The patient apparently was recently started on home O2 approximately 1 month ago. Shortness of breath has been getting worse over the past month or so, but for the past 2 weeks progressively worsening with lower extremity edema. She was admitted with the above. On admission, she was placed on supplemental O2 and given Lasix. She underwent an echocardiogram earlier, which revealed no evidence of acute LV dysfunction or RV dilatation or pulmonary hypertension. Patient denies any history of occupational exposure to chemicals or fumes. No fevers, weight loss or night sweats. PAST MEDICAL HISTORY: Again, includes hypothyroidism, hypertension, COPD, morbid obesity, hyperlipidemia, compression fractures, major depressive disorder. REVIEW OF SYSTEMS: Positive orthopnea. Positive dyspnea on exertion. No chest pain. No palpitations. No fever. No weight loss, night sweats. No abdominal pain. Positive lower extremity edema. CURRENT MEDICATIONS: Include Tylenol, Lovenox, Neurontin, Cymbalta, Desyrel, Lidoderm, DuoNeb, Toprol, artificial tears. PHYSICAL EXAMINATION: General: Patient is an elderly white female, morbidly obese. She is in no acute distress. Vital Signs: She is currently afebrile, blood pressure 141/80, respiratory rate is 18, O2 saturation is 97% on 2 L nasal cannula. HEENT: Exam is normocephalic, atraumatic. Neck: Supple. Heart: Regular S1 and S2. Chest: Diminished breath sounds bilaterally. Abdomen: Soft. Bowel sounds are positive. Extremities: Bilateral lower extremity edema. LABORATORIES: BUN 15, creatinine 0.8. WBC is 6, hemoglobin 11.9, hematocrit 36.8, platelet count of 247,000. BNP is 239. Chest x-ray: No infiltrates and no effusions. IMPRESSION: 1. Dyspnea. Likely secondary to mild underlying chronic obstructive pulmonary disease. 2. Morbid obesity. 3. R/ Cardiac. 4. Hypothyroidism. 5. Hypertension. 6. Hyperlipidemia. 7. Suspected obstructive sleep apnea. PLAN: Inhaled bronchodilators. Supplemental O2. Check arterial blood gas on room air. Chest CT. Pulmonary function tests as outpatient and a sleep screen. JOAN MICHEL M.D. [id number] MTDD
[2019-08-11 13:51] LABS: ARTERIAL BLD GAS O2 SATURATION 98.3 % (95-98); ARTERIAL BLOOD GAS BASE EXCESS 8.7 meq/l (-2-2); ARTERIAL BLOOD GAS PCO2 57.5 mmHg (35-45); ARTERIAL BLOOD GAS PO2 119 mmHg (80-100)
[2019-08-11 13:59] LABS: ALLENS TEST POSITIVE
[2019-08-11] MEDS ORDERED: LIDOCAINE PATCH REMOVAL MC SCH (22:00)
[2019-08-12] MEDS ORDERED: LEVOTHYROXINE NA 112 MCG TABLET (FP) ONE (06:10)
[2019-08-12] MEDS ORDERED: LEVOTHYROXINE NA 25 MCG TABLET (FP) ONE (06:10)
[2019-08-12] MEDS: LEVOTHYROXINE 112 MCG, LEVOTHYROXINE 25 MCG PO SCH (07:31)
[2019-08-12] MEDS: ARTIFICIAL TEARS (POLYVINYL ALCOHOL) OPTH DROPS OU SCH ×3 (07:31→21:40)
[2019-08-12] MEDS: GABAPENTIN 100 MG CAPSULE PO SCH ×3 (07:31→21:41)
[2019-08-12 08:16] LABS: BLOOD UREA NITROGEN 21.4 mg/dL (7-18); CALCIUM 8.7 mg/dL (8.5-10.1); CREATININE 0.8 mg/dL (0.55-1.3); POTASSIUM 4.2 mmol/L (3.5-5.1)
--- NOTE | 2019-08-12 09:08 | PN ---
Progress Note, Physician Chief Complaint: Patient seen and examined at the bedside, no acute events from last night, diminution of shortness of breath. History of Present Illness: This 83 yr old w/f with PMH of COPD, morbid obesity, hypothyroidism, wedge compression fractures T11-T12, L2, and L4, spinal stenosis of lumbar spine without neurogenic claudication, HTN, HLD, chronic low back pain, macular degeneration, DJD of both knees admitted via ER with an acute exacerbation of shortness of breath, and edema of lower extremities. - Current Medication List Current Medications: Active Medications Acetaminophen (Tylenol -) 650 mg PO Q6H PRN PRN Reason: MODERATE PAIN Albuterol/Ipratropium (Duoneb -) 1 amp NEB Q4H PRN PRN Reason: WHEEZING Artificial Tears (Artificial Tears) 1 drop OU TID [facility] Last Admin: 08/12/19 07:31 Dose: 1 drop Documented by: Baclofen (Lioresal -) 10 mg PO DAILY [facility] Last Admin: 08/11/19 12:24 Dose: 10 mg Documented by: Duloxetine HCl (Cymbalta -) 60 mg PO DAILY [facility] Last Admin: 08/11/19 09:31 Dose: 60 mg Documented by: Enoxaparin Sodium (Lovenox -) 40 mg SQ DAILY [facility] Last Admin: 08/11/19 09:32 Dose: 40 mg Documented by: Gabapentin (Neurontin -) 100 mg PO TID [facility] Last Admin: 08/12/19 07:31 Dose: 100 mg Documented by: Levothyroxine Sodium 112 mcg/ (Levothyroxine Sodium 25 mcg) 137 mcg PO DAILY@0700 [facility] Last Admin: 08/12/19 07:31 Dose: 137 mcg Documented by: Lidocaine (Lidoderm Patch -) 1 patch TP DAILY [facility] Last Admin: 08/11/19 12:22 Dose: 1 patch Documented by: Metoprolol Succinate (Toprol Xl -) 50 mg PO DAILY [facility] Last Admin: 08/11/19 09:31 Dose: 50 mg Documented by: Temazepam (Restoril -) 15 mg PO HS PRN PRN Reason: INSOMNIA Last Admin: 08/11/19 23:21 Dose: 15 mg Documented by: Trazodone HCl (Desyrel -) 100 mg PO DAILY [facility] Last Admin: 08/11/19 09:31 Dose: 100 mg Documented by: - Objective Vital Signs: Vital Signs Temperature 98.2 F 08/12/19 06:00 Pulse Rate 86 08/12/19 06:00 Respiratory Rate 18 08/12/19 06:00 Blood Pressure 135/73 08/12/19 06:00 O2 Sat by Pulse Oximetry (%) 95 08/11/19 21:00 Constitutional: Yes: Well Nourished, Calm, Mild Distress Eyes: Yes: Conjunctiva Clear, EOM Intact HENT: Yes: Atraumatic, Normocephalic Neck: Yes: Supple, Trachea Midline Cardiovascular: Yes: Regular Rate and Rhythm Respiratory: Yes: Diminished, On Nasal O2, SOB, SOB on Exertion, Tachypnea Gastrointestinal: Yes: Normal Bowel Sounds, Soft, Abdomen, Obese ...Rectal Exam: Yes: Deferred Genitourinary: Yes: WNL Breast(s): Yes: WNL Musculoskeletal: Yes: Muscle Weakness Extremities: Yes: Other (generalized muscle w) Edema: Yes Edema: LLE: 1+, RLE: 1+ Peripheral Pulses WNL: Yes Peripheral Pulses: Left Radial: 2+, Right Radial: 2+ Integumentary: Yes: WNL Neurological: Yes: Unsteady Gait, Weakness ...Motor Strength: LUE (muscle weakness), LLE (muscle weakness), RUE (muscle weakness), RLE (muscle weakness) Psychiatric: Yes: Alert, Oriented Labs: CBC, BMP 08/11/19 06:45 08/12/19 05:46 INR, PTT INR 0.86 (0.83-1.09) 08/10/19 15:43 - ....Imaging Other: Report Reviewed (Lab data reviewed, Pulmonary and Cardio notes read and appreciated) Problem List - Problems (1) Edema of lower extremity Code(s): R60.0 - LOCALIZED EDEMA (2) Generalized muscle weakness Code(s): M62.81 - MUSCLE WEAKNESS (GENERALIZED) (3) SOB (shortness of breath) Code(s): R06.02 - SHORTNESS OF BREATH (4) COPD (chronic obstructive pulmonary disease) Code(s): J44.9 - CHRONIC OBSTRUCTIVE PULMONARY DISEASE, UNSPECIFIED (5) HLD (hyperlipidemia) Code(s): E78.5 - HYPERLIPIDEMIA, UNSPECIFIED (6) HTN (hypertension) Code(s): I10 - ESSENTIAL (PRIMARY) HYPERTENSION (7) Hypothyroidism Code(s): E03.9 - HYPOTHYROIDISM, UNSPECIFIED (8) Wedge compression fracture of T11 vertebra Code(s): S22.080A - WEDGE COMPRESSION FRACTURE OF T11-T12 VERTEBRA, INIT (9) Wedge compression fracture of L2 vertebra Code(s): S32.020A - WEDGE COMPRESSION FRACTURE OF SECOND LUMBAR VERTEBRA, INIT (10) Wedge compression fracture of L4 vertebra Code(s): S32.040A - WEDGE COMPRESSION FRACTURE OF FOURTH LUMBAR VERTEBRA, INIT (11) Chronic low back pain Code(s): M54.5 - LOW BACK PAIN; G89.29 - OTHER CHRONIC PAIN (12) History of falling Code(s): Z91.81 - HISTORY OF FALLING (13) Arthritis of both knees Code(s): M17.0 - BILATERAL PRIMARY OSTEOARTHRITIS OF KNEE (14) Anxiety Code(s): F41.9 - ANXIETY DISORDER, UNSPECIFIED (15) Spinal stenosis of lumbar region Code(s): M48.061 - SPINAL STENOSIS, LUMBAR REGION WITHOUT NEUROGENIC DAVID (16) Right Achilles tendinitis Code(s): M76.61 - ACHILLES TENDINITIS, RIGHT LEG (17) Acute diastolic CHF (congestive heart failure) Code(s): I50.31 - ACUTE DIASTOLIC (CONGESTIVE) HEART FAILURE Assessment/Plan Assessment/plan: acute exacerbation of shortness of breath, and edema of lower extremities, acute on chronic diastolic CHF, acute COPD, acute generalized muscle weakness; DVT prophylaxis, physical therapy, oxygen 3L/min via nasal cannula, fall precautions, bronchodilators, discharge planning, social worker psychiatric request.
[2019-08-12] MEDS: traZODone HCL 100 MG TABLET (FP) PO SCH (10:17)
[2019-08-12] MEDS: ENOXAPARIN NA (PORCINE) 40 MG/0.4 ML DISP.SYRIN SQ SCH (10:18)
[2019-08-12] MEDS: DULoxetine HCL 30 MG CAPSULE.DR PO SCH (10:18)
[2019-08-12] MEDS: BACLOFEN 10 MG TABLET (FP) PO SCH (10:18)
[2019-08-12] MEDS: LIDOCAINE 5% TOPICAL PATCH TP SCH (10:18)
--- NOTE | 2019-08-12 10:43 | PN ---
Progress Note (short form) - Note Progress Note: s: no cp palps dizzy; sob less Current Medications Generic Name Dose Route Start Last Admin Trade Name Freq PRN Reason Stop Dose Admin Acetaminophen 650 mg 08/10/19 15:05 Tylenol - PO Q6H PRN MODERATE PAIN Albuterol/Ipratropium 1 amp 08/10/19 15:06 Duoneb - NEB Q4H PRN WHEEZING Artificial Tears 1 drop 08/10/19 15:15 08/12/19 07:31 Artificial Tears OU 1 drop TID JOEY Administration Baclofen 10 mg 08/10/19 20:00 08/12/19 10:18 Lioresal - PO 10 mg DAILY JOEY Administration Duloxetine HCl 60 mg 08/11/19 10:00 08/12/19 10:18 Cymbalta - PO 60 mg DAILY JOEY Administration Enoxaparin Sodium 40 mg 08/10/19 19:30 08/12/19 10:18 Lovenox - SQ 40 mg DAILY JOEY Administration Gabapentin 100 mg 08/10/19 15:15 08/12/19 07:31 Neurontin - PO 100 mg TID JOEY Administration Levothyroxine Sodium 112 mcg/ 137 mcg 08/11/19 07:00 08/12/19 07:31 Levothyroxine Sodium 25 mcg PO 137 mcg DAILY@0700 JOEY Administration Lidocaine 1 patch 08/11/19 10:30 08/12/19 10:18 Lidoderm Patch - TP 1 patch DAILY JOEY Administration Metoprolol Succinate 50 mg 08/11/19 10:00 08/12/19 10:17 Toprol Xl - PO 50 mg DAILY JOEY Administration Trazodone HCl 100 mg 08/10/19 20:00 08/12/19 10:17 Desyrel - PO 100 mg DAILY JOEY Administration Vital Signs Period Temp Pulse Resp BP Sys/Gee Pulse Ox Last 24 Hr 98.0 F-98.8 F 81-89 16-18 128-148/50-74 94-95 Constitutional: Yes: No Distress, Calm Eyes: Yes: Conjunctiva Clear, EOM Intact HENT: Yes: Atraumatic, Normocephalic Neck: Yes: Supple Respiratory: Yes: Regular, CTA Bilaterally Gastrointestinal: Yes: Normal Bowel Sounds, Soft Cardiovascular: Yes: Regular Rate and Rhythm Heart Sounds: Yes: S1, S2 Extremities: No: Cold Edema: no Integumentary: No: Jaundice Neurological: Yes: Alert, Oriented Psychiatric: No: Agitated - Other Data Labs, Other Data: CBC, BMP 08/11/19 06:45 08/12/19 05:46 Assessment/Plan EKG: sinus, nl intervals, no ischemic changes CXR: no acute process echo 08/2019 nl LV function, pseudonormalization (grade II diastolic dysfunction), mild MAC, tr MR tele: sinus dyspnea, edema, acute on chronic diastolic HF -ct chest shows no chf, shows copd changes, tx of copd per pulm -vol stable HTN - cont home meds HLD - cont statin hypothyroidism - manage per primary dc tele
--- NOTE | 2019-08-12 12:16 | PN ---
Progress Note (short form) - Note Progress Note: Breathing feels better. No CP. No acute events overnight. Intake & Output 08/09/19 08/10/19 08/11/19 08/12/19 23:59 23:59 23:59 23:59 Intake Total 850 Output Total 400 500 Balance 450 -500 Weight 258 lb Last Vital Signs Temp Pulse Resp BP Pulse Ox 98.2 F 89 16 137/50 L 95 08/12/19 10:00 08/12/19 10:00 08/12/19 10:00 08/12/19 10:00 08/11/19 21:00 Active Medications Acetaminophen (Tylenol -) 650 mg PO Q6H PRN PRN Reason: PAIN 1-3 Albuterol/Ipratropium (Duoneb -) 1 amp NEB Q4H PRN PRN Reason: WHEEZING Artificial Tears (Artificial Tears) 1 drop OU TID [facility] Last Admin: 08/12/19 07:31 Dose: 1 drop Documented by: Baclofen (Lioresal -) 10 mg PO DAILY [facility] Last Admin: 08/12/19 10:18 Dose: 10 mg Documented by: Duloxetine HCl (Cymbalta -) 60 mg PO DAILY [facility] Last Admin: 08/12/19 10:18 Dose: 60 mg Documented by: Enoxaparin Sodium (Lovenox -) 40 mg SQ DAILY [facility] Last Admin: 08/12/19 10:18 Dose: 40 mg Documented by: Gabapentin (Neurontin -) 100 mg PO TID [facility] Last Admin: 08/12/19 07:31 Dose: 100 mg Documented by: Levothyroxine Sodium 112 mcg/ (Levothyroxine Sodium 25 mcg) 137 mcg PO DAILY@0700 [facility] Last Admin: 08/12/19 07:31 Dose: 137 mcg Documented by: Lidocaine (Lidoderm Patch -) 1 patch TP DAILY [facility] Last Admin: 08/12/19 10:18 Dose: 1 patch Documented by: Metoprolol Succinate (Toprol Xl -) 50 mg PO DAILY [facility] Last Admin: 08/12/19 10:17 Dose: 50 mg Documented by: Tramadol HCl (Ultram -) 50 mg PO Q6H PRN PRN Reason: PAIN LEVEL 6-10 Trazodone HCl (Desyrel -) 100 mg PO DAILY [facility] Last Admin: 08/12/19 10:17 Dose: 100 mg Documented by: Constitutional: Yes: No Distress Eyes: Yes: Conjunctiva Clear, EOM Intact HENT: Yes: Atraumatic, Normocephalic Neck: Yes: Supple Respiratory: Yes: Regular, CTA Bilaterally Gastrointestinal: Yes: Normal Bowel Sounds, Soft Cardiovascular: Yes: Regular Rate and Rhythm Heart Sounds: Yes: S1, S2 Extremities: No: Cold Edema: no Integumentary: No: Jaundice Neurological: Yes: Alert, Oriented Laboratory Results - last 24 hr 08/11/19 08/12/19 08/12/19 13:13 05:46 05:46 Anticoagulation Therapy No Result Required. Puncture Site Right radial ABG pH 7.40 ABG pCO2 at Pt Temp 57.5 H ABG pO2 at Pt Temp 119 H ABG HCO3 34.9 H ABG O2 Sat (Measured) 98.3 H ABG O2 Content 16.7 ABG Base Excess 8.7 H Jose De Jesus Test Positive O2 Delivery Device No Result Required. Oxygen Flow Rate Yes Vent Mode No Result Required. Vent Rate No Result Required. Mechanical Rate No Result Required. Pressure Support Vent No Result Required. Sodium 144 Potassium 4.2 Chloride 102 Carbon Dioxide 36 H Anion Gap 6 L BUN 21.4 H Creatinine 0.8 Est GFR (CKD-EPI)AfAm 77.92 Est GFR (CKD-EPI)NonAf 67.23 Random Glucose 102 Calcium 8.7 TSH 2.87 Free T4 1.01 IMP DYSPNEA R/O COPD MORBID OBESITY HYPOTHYROID HTN HLD SUSPECTED OSAS ATELECTASIS PLAN INHALED BRONCHODILATORS O2 NEEDED PFTS OUTPATIENT SLEEP SCREEN VTE PROPHYLAXIS DR FREIRE
[2019-08-12] MEDS: traMADol HCL 50 MG TABLET PO PRN ×2 (12:33→21:41)
[2019-08-13] MEDS ORDERED: LEVOTHYROXINE NA 25 MCG TABLET (FP) ONE (06:15)
[2019-08-13] MEDS ORDERED: LEVOTHYROXINE NA 112 MCG TABLET (FP) ONE (06:15)
[2019-08-13] MEDS: ARTIFICIAL TEARS (POLYVINYL ALCOHOL) OPTH DROPS OU SCH ×2 (06:19→13:27)
[2019-08-13] MEDS: GABAPENTIN 100 MG CAPSULE PO SCH ×2 (06:19→13:27)
[2019-08-13] MEDS: LEVOTHYROXINE 112 MCG, LEVOTHYROXINE 25 MCG PO SCH (06:20)
--- NOTE | 2019-08-13 09:44 | PN ---
Progress Note, Physician Chief Complaint: feeling better Less SOB OFF tele - Current Medication List Current Medications: Active Medications Acetaminophen (Tylenol -) 650 mg PO Q6H PRN PRN Reason: PAIN 1-3 Albuterol/Ipratropium (Duoneb -) 1 amp NEB Q4H PRN PRN Reason: WHEEZING Artificial Tears (Artificial Tears) 1 drop OU TID [facility] Last Admin: 08/13/19 06:19 Dose: 1 drop Documented by: Baclofen (Lioresal -) 10 mg PO DAILY [facility] Last Admin: 08/12/19 10:18 Dose: 10 mg Documented by: Duloxetine HCl (Cymbalta -) 60 mg PO DAILY [facility] Last Admin: 08/12/19 10:18 Dose: 60 mg Documented by: Enoxaparin Sodium (Lovenox -) 40 mg SQ DAILY [facility] Last Admin: 08/12/19 10:18 Dose: 40 mg Documented by: Gabapentin (Neurontin -) 100 mg PO TID [facility] Last Admin: 08/13/19 06:19 Dose: 100 mg Documented by: Levothyroxine Sodium 112 mcg/ (Levothyroxine Sodium 25 mcg) 137 mcg PO DAILY@0700 [facility] Last Admin: 08/13/19 06:20 Dose: 137 mcg Documented by: Lidocaine (Lidoderm Patch -) 1 patch TP DAILY [facility] Last Admin: 08/12/19 10:18 Dose: 1 patch Documented by: Metoprolol Succinate (Toprol Xl -) 50 mg PO DAILY [facility] Last Admin: 08/12/19 10:17 Dose: 50 mg Documented by: Tramadol HCl (Ultram -) 50 mg PO Q6H PRN PRN Reason: PAIN LEVEL 6-10 Last Admin: 08/12/19 21:41 Dose: 50 mg Documented by: Trazodone HCl (Desyrel -) 100 mg PO DAILY [facility] Last Admin: 08/12/19 10:17 Dose: 100 mg Documented by: - Objective Vital Signs: Vital Signs Temperature 98.2 F 08/13/19 06:00 Pulse Rate 87 08/13/19 06:00 Respiratory Rate 18 08/13/19 06:00 Blood Pressure 148/77 08/13/19 06:00 O2 Sat by Pulse Oximetry (%) 95 08/12/19 10:00 Constitutional: Yes: No Distress, Calm Cardiovascular: Yes: Regular Rate and Rhythm Respiratory: Yes: Rhonchi, Wheezes Gastrointestinal: Yes: Soft, Abdomen, Obese Edema: Yes Edema: LLE: 1+, RLE: 1+ Neurological: Yes: Alert, Oriented Labs: CBC, BMP 08/11/19 06:45 08/12/19 05:46 INR, PTT INR 0.86 (0.83-1.09) 08/10/19 15:43 Assessment/Plan Assessment/Plan EKG: sinus, nl intervals, no ischemic changes CXR: no acute process echo 08/2019 nl LV function, pseudonormalization (grade II diastolic dysfunction), mild MAC, tr MR tele: sinus dyspnea, edema, chronic diastolic HF: pseudonormal filling pattern -ct chest shows no chf, shows copd changes, tx of copd per pulm -Grade II diastolic dysfx on echo, she will likely need Lasix as maintenance therapy to lower EDP and control chronic mild volume overload. -Would keep on Lasix 20mg daily and monitor lytes and renal fx HTN: - cont home meds HLD: - cont statin hypothyroidism: - manage per primary
[2019-08-13] MEDS ORDERED: PT OWN MED DRAWER 7, Y5N ONE (09:54)
--- NOTE | 2019-08-13 09:57 | PN ---
Progress Note, Physician Chief Complaint: Patient seen and examined at the bedside, no acute events from last night, no labored breathing. History of Present Illness: This 83 yr old w/f with PMH of morbid obesity,COPD, hypothyroidism, wedge compression fractures of T11-T12, L2, and L4, spinal stenosis of lumbar spine without neurogenic claudication, chronic low back pain, HTN, HLD, macular degeneration, and DJD of knees admitted via ER with an acute exacerbation of shortness of breath, and edema of lower extremities. - Current Medication List Current Medications: Active Medications Acetaminophen (Tylenol -) 650 mg PO Q6H PRN PRN Reason: PAIN 1-3 Albuterol/Ipratropium (Duoneb -) 1 amp NEB Q4H PRN PRN Reason: WHEEZING Artificial Tears (Artificial Tears) 1 drop OU TID [facility] Last Admin: 08/13/19 06:19 Dose: 1 drop Documented by: Baclofen (Lioresal -) 10 mg PO DAILY [facility] Last Admin: 08/12/19 10:18 Dose: 10 mg Documented by: Duloxetine HCl (Cymbalta -) 60 mg PO DAILY [facility] Last Admin: 08/12/19 10:18 Dose: 60 mg Documented by: Enoxaparin Sodium (Lovenox -) 40 mg SQ DAILY [facility] Last Admin: 08/12/19 10:18 Dose: 40 mg Documented by: Gabapentin (Neurontin -) 100 mg PO TID [facility] Last Admin: 08/13/19 06:19 Dose: 100 mg Documented by: Levothyroxine Sodium 112 mcg/ (Levothyroxine Sodium 25 mcg) 137 mcg PO DAILY@0700 [facility] Last Admin: 08/13/19 06:20 Dose: 137 mcg Documented by: Lidocaine (Lidoderm Patch -) 1 patch TP DAILY [facility] Last Admin: 08/12/19 10:18 Dose: 1 patch Documented by: Metoprolol Succinate (Toprol Xl -) 50 mg PO DAILY [facility] Last Admin: 08/12/19 10:17 Dose: 50 mg Documented by: Tramadol HCl (Ultram -) 50 mg PO Q6H PRN PRN Reason: PAIN LEVEL 6-10 Last Admin: 08/12/19 21:41 Dose: 50 mg Documented by: Trazodone HCl (Desyrel -) 100 mg PO DAILY [facility] Last Admin: 03/05/20 10:17 Dose: 100 mg Documented by: - Objective Vital Signs: Vital Signs Temperature 98.2 F 08/13/19 06:00 Pulse Rate 87 08/13/19 06:00 Respiratory Rate 18 08/13/19 06:00 Blood Pressure 148/77 08/13/19 06:00 O2 Sat by Pulse Oximetry (%) 95 08/12/19 10:00 Constitutional: Yes: Well Nourished, No Distress, Calm Eyes: Yes: Conjunctiva Clear, EOM Intact HENT: Yes: Atraumatic, Normocephalic Neck: Yes: Supple, Trachea Midline Cardiovascular: Yes: Regular Rate and Rhythm Respiratory: Yes: Diminished, On Nasal O2, SOB, SOB on Exertion, Tachypnea Gastrointestinal: Yes: Normal Bowel Sounds, Soft ...Rectal Exam: Yes: Deferred Genitourinary: Yes: WNL Breast(s): Yes: WNL Musculoskeletal: Yes: Muscle Weakness Extremities: Yes: Other (generalized muscle weakness) Edema: Yes Edema: LLE: 1+, RLE: 1+ Peripheral Pulses WNL: Yes Peripheral Pulses: Left Radial: 2+, Right Radial: 2+ Integumentary: Yes: WNL Neurological: Yes: Alert, Oriented, Unsteady Gait, Weakness ...Motor Strength: LUE (muscle weakness), LLE (muscle weakness), RUE (muscle weakness), RLE (muscle weakness) Psychiatric: Yes: Alert, Oriented Labs: CBC, BMP 08/11/19 06:45 08/12/19 05:46 INR, PTT INR 0.86 (0.83-1.09) 08/10/19 15:43 Problem List - Problems (1) Edema of lower extremity Code(s): R60.0 - LOCALIZED EDEMA (2) Generalized muscle weakness Code(s): M62.81 - MUSCLE WEAKNESS (GENERALIZED) (3) SOB (shortness of breath) Code(s): R06.02 - SHORTNESS OF BREATH (4) COPD (chronic obstructive pulmonary disease) Code(s): J44.9 - CHRONIC OBSTRUCTIVE PULMONARY DISEASE, UNSPECIFIED (5) HLD (hyperlipidemia) Code(s): E78.5 - HYPERLIPIDEMIA, UNSPECIFIED (6) HTN (hypertension) Code(s): I10 - ESSENTIAL (PRIMARY) HYPERTENSION (7) Hypothyroidism Code(s): E03.9 - HYPOTHYROIDISM, UNSPECIFIED (8) Wedge compression fracture of T11 vertebra Code(s): S22.080A - WEDGE COMPRESSION FRACTURE OF T11-T12 VERTEBRA, INIT (9) Wedge compression fracture of L2 vertebra Code(s): S32.020A - WEDGE COMPRESSION FRACTURE OF SECOND LUMBAR VERTEBRA, INIT (10) Wedge compression fracture of L4 vertebra Code(s): S32.040A - WEDGE COMPRESSION FRACTURE OF FOURTH LUMBAR VERTEBRA, INIT (11) Chronic low back pain Code(s): M54.5 - LOW BACK PAIN; G89.29 - OTHER CHRONIC PAIN (12) History of falling Code(s): Z91.81 - HISTORY OF FALLING (13) Arthritis of both knees Code(s): M17.0 - BILATERAL PRIMARY OSTEOARTHRITIS OF KNEE (14) Anxiety Code(s): F41.9 - ANXIETY DISORDER, UNSPECIFIED (15) Spinal stenosis of lumbar region Code(s): M48.061 - SPINAL STENOSIS, LUMBAR REGION WITHOUT NEUROGENIC DAVID (16) Right Achilles tendinitis Code(s): M76.61 - ACHILLES TENDINITIS, RIGHT LEG (17) Acute diastolic CHF (congestive heart failure) Code(s): I50.31 - ACUTE DIASTOLIC (CONGESTIVE) HEART FAILURE Assessment/Plan Assessment/plan: acute exacerbation of shortness of breath, acute exacerbation of edema of lower extremities, acute on chronic diastolic CHF, acute generalized muscle weakness, acute COPD; DVT prophylaxis, oxygen 3L/min via nasal cannula, bronchodilators, Lasix 20mg po od, K-Dur 20meQ po q48h, discharge planning, mental health social worker request.
[2019-08-13] MEDS ORDERED: POTASSIUM CHLORIDE TABS 20 MEQ TABLET.ER (FP) PO SCH (10:15)
[2019-08-13] MEDS ORDERED: FUROSEMIDE 20 MG TABLET (FP) PO SCH (10:15)
[2019-08-13] MEDS: traZODone HCL 100 MG TABLET (FP) PO SCH (10:38)
[2019-08-13] MEDS: LIDOCAINE 5% TOPICAL PATCH TP SCH (10:38)
[2019-08-13] MEDS: DULoxetine HCL 30 MG CAPSULE.DR PO SCH (10:38)
[2019-08-13] MEDS: BACLOFEN 10 MG TABLET (FP) PO SCH (10:38)
[2019-08-13] MEDS: ENOXAPARIN NA (PORCINE) 40 MG/0.4 ML DISP.SYRIN SQ SCH (10:38)
--- NOTE | 2019-08-13 12:21 | PN ---
Progress Note, Physician History of Present Illness: pulmonary alert,comfortable,-sob,-cp - Current Medication List Current Medications: Active Medications Acetaminophen (Tylenol -) 650 mg PO Q6H PRN PRN Reason: PAIN 1-3 Albuterol/Ipratropium (Duoneb -) 1 amp NEB Q4H PRN PRN Reason: WHEEZING Artificial Tears (Artificial Tears) 1 drop OU TID [facility] Last Admin: 08/13/19 06:19 Dose: 1 drop Documented by: Baclofen (Lioresal -) 10 mg PO DAILY [facility] Last Admin: 08/13/19 10:38 Dose: 10 mg Documented by: Duloxetine HCl (Cymbalta -) 60 mg PO DAILY [facility] Last Admin: 08/13/19 10:38 Dose: 60 mg Documented by: Enoxaparin Sodium (Lovenox -) 40 mg SQ DAILY [facility] Last Admin: 08/13/19 10:38 Dose: 40 mg Documented by: Furosemide (Lasix -) 20 mg PO DAILY [facility] Last Admin: 08/13/19 10:37 Dose: 20 mg Documented by: Gabapentin (Neurontin -) 100 mg PO TID [facility] Last Admin: 08/13/19 06:19 Dose: 100 mg Documented by: Levothyroxine Sodium 112 mcg/ (Levothyroxine Sodium 25 mcg) 137 mcg PO DAILY@0700 [facility] Last Admin: 08/13/19 06:20 Dose: 137 mcg Documented by: Lidocaine (Lidoderm Patch -) 1 patch TP DAILY [facility] Last Admin: 08/13/19 10:38 Dose: 1 patch Documented by: Metoprolol Succinate (Toprol Xl -) 50 mg PO DAILY [facility] Last Admin: 08/13/19 10:38 Dose: 50 mg Documented by: Potassium Chloride (K-Dur -) 20 meq PO Q48H [facility] Last Admin: 08/13/19 10:37 Dose: 20 meq Documented by: Tramadol HCl (Ultram -) 50 mg PO Q6H PRN PRN Reason: PAIN LEVEL 6-10 Last Admin: 08/12/19 21:41 Dose: 50 mg Documented by: Trazodone HCl (Desyrel -) 100 mg PO DAILY [facility] Last Admin: 08/13/19 10:38 Dose: 100 mg Documented by: - Objective Vital Signs: Vital Signs Temperature 98.8 F 08/13/19 10:00 Pulse Rate 86 08/13/19 10:00 Respiratory Rate 18 08/13/19 10:00 Blood Pressure 153/79 08/13/19 10:00 O2 Sat by Pulse Oximetry (%) 95 08/12/19 10:00 Constitutional: Yes: Calm, Obese Eyes: Yes: WNL HENT: Yes: WNL Neck: Yes: WNL Cardiovascular: Yes: Regular Rate and Rhythm, S1, S2 Respiratory: Yes: CTA Bilaterally Gastrointestinal: Yes: Normal Bowel Sounds, Soft Extremities: Yes: WNL Edema: Yes Labs: CBC, BMP Assessment/Plan IMP DYSPNEA ACUTE ON CHRONIC HYPERCAPNEIC RESPIRATORY FAILURE ? COPD MORBID OBESITY ? CARDIAC HYPOTHYROID HTN HLD SUSPECTED OSAS PLAN INHALED BRONCHODILATORS O2 PFTS OUTPATIENT SLEEP SCREEN AMBULATORY O2 SAT ON RA PRIOR TO DISCHARGE DR MICHEL
--- NOTE | 2019-08-13 13:48 | DS ---
Physical Examination Vital Signs: Vital Signs Temperature 98.8 F 08/13/19 10:00 Pulse Rate 86 08/13/19 10:00 Respiratory Rate 18 08/13/19 10:00 Blood Pressure 153/79 08/13/19 10:00 O2 Sat by Pulse Oximetry (%) 93 L 08/13/19 13:00 Constitutional: Yes: Well Nourished, No Distress, Calm Eyes: Yes: Conjunctiva Clear, EOM Intact HENT: Yes: Atraumatic, Normocephalic Neck: Yes: Supple, Trachea Midline Cardiovascular: Yes: Regular Rate and Rhythm Respiratory: Yes: Regular, CTA Bilaterally Gastrointestinal: Yes: Normal Bowel Sounds, Soft ...Rectal Exam: Yes: Deferred Renal/: Yes: WNL Breast(s): Yes: WNL Musculoskeletal: Yes: Muscle Weakness Edema: Yes Edema: LLE: 1+, RLE: 1+ Peripheral Pulses WNL: Yes Peripheral Pulses: Left Radial: 2+, Right Radial: 2+ Integumentary: Yes: WNL Neurological: Yes: Unsteady Gait, Weakness ...Motor Strength: LUE (muscle weakness), LLE (muscle weakness), RUE (muscle weakness), RLE (muscle weakness) Labs: CBC, BMP 08/11/19 06:45 08/12/19 05:46 Discharge Summary Problems reviewed: Yes Reason For Visit: SOB Current Active Problems Acute diastolic CHF (congestive heart failure) (Acute) Condition: Stable - Instructions Diet, Activity, Other Instructions: Transfer to [facility] meds. Physical therapy. Activity as tolerated. Oxygen 3L/min via nasal cannula. Total time spent over 30 minutes. Referrals: Matthew Caldera MD [Primary Care Provider] - Disposition: [facility] - Home Medications Comprehensive Discharge Medication List: Ambulatory Orders Levothyroxine [Synthroid -] 137 mcg PO DAILY 04/02/18 Simvastatin 20 mg PO HS 04/02/18 Acetaminophen [Tylenol .Regular Strength -] 650 mg PO Q6H PRN tablet 08/12/19 Albuterol 2.5/Ipratropium 0.5 [Duoneb -] 1 amp NEB Q4H PRN amp 08/12/19 Baclofen [Lioresal -] 10 mg PO DAILY tablet 08/12/19 Duloxetine HCl [Cymbalta -] 60 mg PO DAILY capsule. 08/12/19 Gabapentin [Neurontin -] 100 mg PO TID capsule 08/12/19 Levothyroxine [Synthroid -] 137 mcg PO DAILY@0700 tablet 08/12/19 Levothyroxine [Synthroid -] 137 mcg PO DAILY@0700 tablet 08/12/19 Lidocaine 5% Patch [Lidoderm -] 1 patch TP DAILY patch 08/12/19 Lidocaine Patch Removal [Lidoderm Patch Removal] 1 each MC DAILY@2200 each 08/12/19 Melatonin 10 mg PO HS tab 08/12/19 Metoprolol Succinate [Toprol XL -] 50 mg PO DAILY tab.sr.24h 08/12/19 Polyvinyl Alcohol [Artificial Tears] 1 drop OU TID drops 08/12/19 traZODone HCL [Desyrel -] 100 mg PO DAILY tablet 08/12/19 Furosemide [Lasix -] 20 mg PO DAILY tablet 08/13/19 Potassium Chloride [K-Dur -] 20 meq PO Q48H tablet.er 08/13/19 traMADol HCL [Ultram -] 50 mg PO Q6H PRN tablet 08/13/19
[2019-08-13 15:22] VITALS: BP 153/67; PULSE 88; TEMP 98.7
== END 2019-08-13 18:41 | DRG 291 ==
LOC: JER 13:37 → JERBED 15:23 → J4S 19:48
PROVIDERS: ADMIT Internal Medicine; ATTEND Internal Medicine
DX: I11.0 Hypertensive heart disease with heart failure (principal); J96.22 Acute and chronic respiratory failure with hypercapnia; J44.1 Chronic obstructive pulmonary disease with (acute) exacerbation; Z68.42 Body mass index [BMI] 45.0-49.9, adult; J98.11 Atelectasis; I50.33 Acute on chronic diastolic (congestive) heart failure; E66.01 Morbid (severe) obesity due to excess calories; M48.56XG Collapsed vertebra, not elsewhere classified, lumbar region, subsequent encounter for fracture with delayed healing; E03.9 Hypothyroidism, unspecified; E78.5 Hyperlipidemia, unspecified; M17.0 Bilateral primary osteoarthritis of knee
CPT/HCPCS: 36415; 36600; 71046-TC-FY; 71250-TC; 80048; 80053; 82550; 82803; 83735; 83880; 84100; 84436; 84439; 84443; 84481; 84484; 85025; 85610; 85730; 93005; 93010; 93306-TC; 97116-GP; 97161-GP; 99285-25; J0475

== ENCOUNTER 2022-06-19 02:42 | Inpatient (IN) | payer OTHER ==
[2022-06-19] MEDS ORDERED: DEXAMETHASONE SOD PHOSPHATE 20 MG/5 ML VIAL IVPB ONE (03:11)
[2022-06-19] MEDS ORDERED: ALBUTEROL SO4 2.5/IPRATROPIUM 0.5 INH SOL 3 ML VIAL.NEB. NEB ONE ×4 (03:11→20:55)
[2022-06-19] MEDS ORDERED: PIPERACILLIN/TAZOB 3.375 GM 3.375 GM in DEXTROSE 5%-WATER - 50 ML IVPB ONE (03:14)
[2022-06-19] MEDS ORDERED: PIPERACILLIN/TAZOB 3.375 GM 3.375 GM/50 ML BAG IVPB ONE ×3 (03:18→14:40)
[2022-06-19] MEDS ORDERED: DEXAMETHASONE SOD PHOSPHATE 10 MG/1 ML VIAL ONE (03:18)
[2022-06-19 04:11] LABS: HEMATOCRIT 40.4 % (32.4-45.2); HEMOGLOBIN 12.3 GM/dL (10.7-15.3); MCH 27.7 pg (25.7-33.7); MCHC 30.5 g/dl (32.0-36.0); MEAN CELL VOLUME 90.8 fl (80-96); MEAN PLT VOLUME 7.3 fl (7.5-11.1); PLATELET COUNT 426 10^3/uL (134-434); RBC 4.45 M/mm3 (3.60-5.2); RDW 16.8 % (11.6-15.6); WHITE BLOOD COUNT 18.5 K/mm3 (4.0-10.0)
[2022-06-19 04:19] LABS: ADD RBC MORPHOLOGY YES
[2022-06-19 04:25] LABS: INR 1.05 (0.83-1.09); PROTHROMBIN TIME (PATIENT) 12.1 SEC (9.7-13.0)
[2022-06-19 04:28] LABS: ACTIVATED PTT 28.6 SECONDS (25.2-36.5)
[2022-06-19 04:31] LABS: CALCIUM 9.1 mg/dL (8.5-10.1)
[2022-06-19 04:32] LABS: ALBUMIN 2.5 g/dl (3.4-5.0); BLOOD UREA NITROGEN 17.8 mg/dL (7-18); MAGNESIUM 2.1 mg/dL (1.8-2.4); VENOUS BASE EXCESS 7.7 mmol/L (-2-2); VENOUS O2 SATURATION 79.9 % (70-80); VENOUS PH 7.267 (7.310-7.410)
[2022-06-19 04:35] LABS: CREATININE 0.6 mg/dL (0.55-1.3)
[2022-06-19 04:36] LABS: BILIRUBIN,TOTAL 0.4 mg/dL (0.2-1); TOT PROT 6.2 g/dl (6.4-8.2)
[2022-06-19 04:37] LABS: VENOUS PCO2 84.9 mmHg (38-52)
[2022-06-19 04:40] LABS: N-TERMINAL BNP 3701.4 pg/ml (5-450)
[2022-06-19] MEDS ORDERED: CALCIUM GLUC IN NACL, ISO-OSM 1 GM/50 ML BAG IVPB ONE ×2 (04:43→05:06)
[2022-06-19] MEDS ORDERED: AZITHROMYCIN IVPB 500 MG in DEXTROSE 5%-WATER - 250 ML IVPB ONE (05:21)
[2022-06-19] MEDS ORDERED: AZITHROMYCIN IVPB 500 MG/250 ML BAG IVPB ONE (05:28)
[2022-06-19 05:46] LABS: ARTERIAL BLD GAS O2 SATURATION 94.1 % (95-98); ARTERIAL BLOOD GAS BASE EXCESS 9.2 mmol/L (-2-2); ARTERIAL BLOOD GAS PO2 78.5 mmHg (80-100)
[2022-06-19] MEDS ORDERED: traMADol HCL 50 MG TABLET PO PRN (06:32)
[2022-06-19] MEDS ORDERED: ALBUTEROL SO4 2.5/IPRATROPIUM 0.5 INH SOL 3 ML VIAL.NEB. NEB PRN (06:32)
[2022-06-19 06:34] LABS: ARTERIAL BLD GAS O2 SATURATION 91.9 % (95-98); ARTERIAL BLOOD GAS BASE EXCESS 6.8 mmol/L (-2-2); ARTERIAL BLOOD GAS PO2 70.4 mmHg (80-100); ARTERIAL BLOOD GAS pH 7.307 (7.350-7.450)
[2022-06-19] MEDS ORDERED: ACETAMINOPHEN 1000 MG/100 ML BAG IVPB ONE (06:34)
[2022-06-19 06:39] LABS: ALLENS TEST POSITIVE
[2022-06-19] MEDS ORDERED: ACETAMINOPHEN INJECTION 100 ML IVPB ONE (06:55)
[2022-06-19] MEDS ORDERED: LEVOTHYROXINE NA 25 MCG TABLET (FP) PO SCH (07:00)
[2022-06-19 07:19] LABS: OVALOCYTE 2+; PLATELET ESTIMATE INCREASED; TEAR DROP CELLS 1+
[2022-06-19] MEDS ORDERED: LEVOTHYROXINE 25 MCG, LEVOTHYROXINE 112 MCG PO SCH (09:00)
[2022-06-19] MEDS ORDERED: PIPERACILLIN/TAZOB 3.375 GM 3.375 GM in DEXTROSE 5%-WATER - 50 ML IVPB SCH ×2 (09:00→15:00)
[2022-06-19] MEDS ORDERED: FUROSEMIDE 40 MG TABLET (FP) ONE (09:10)
[2022-06-19] MEDS ORDERED: DULoxetine HCL 30 MG CAPSULE.DR PO ONE (09:11)
[2022-06-19] MEDS ORDERED: BACLOFEN 10 MG TABLET (FP) ONE (09:11)
[2022-06-19] MEDS: DULoxetine HCL 30 MG CAPSULE.DR PO SCH (09:21)
[2022-06-19] MEDS: BACLOFEN 10 MG TABLET (FP) PO SCH (09:21)
[2022-06-19] MEDS: FUROSEMIDE 40 MG TABLET (FP) PO SCH (09:21)
[2022-06-19] MEDS ORDERED: FUROSEMIDE 40 MG/4 ML INJECTABLE VIAL IVPUSH SCH (10:00)
[2022-06-19] MEDS ORDERED: GABAPENTIN 300 MG CAPSULE ONE (14:39)
[2022-06-19] MEDS: ARTIFICIAL TEARS (POLYVINYL ALCOHOL) OPTH DROPS OU SCH ×2 (14:46→22:26)
[2022-06-19] MEDS: GABAPENTIN 100 MG CAPSULE PO SCH ×2 (14:46→23:39)
[2022-06-19] MEDS ORDERED: GABAPENTIN 100 MG CAPSULE ONE (14:47)
[2022-06-19] MEDS ORDERED: ALBUTEROL SO4 0.083% IH SOL 2.5 MG/3 ML VIAL.NEB. NEB PRN (16:23)
[2022-06-19] MEDS ORDERED: methylPREDNISolone NA SUCC 40 MG/1 ML VIAL ONE (16:54)
[2022-06-19] MEDS: methylPREDNISolone NA SUCC 40 MG/1 ML VIAL IVPUSH SCH (17:11)
[2022-06-19] MEDS: PIPERACILLIN/TAZOB 3.375 GM 3.375 GM in DEXTROSE 5%-WATER - 50 ML IVPB SCH (17:12)
[2022-06-19 17:23] LABS: VENOUS BASE EXCESS 8.9 mmol/L (-2-2); VENOUS O2 SATURATION 78.2 % (70-80); VENOUS PH 7.311 (7.310-7.410)
[2022-06-19 17:32] LABS: VENOUS PCO2 76.4 mmHg (38-52)
[2022-06-19] MEDS: ALBUTEROL SO4 2.5/IPRATROPIUM 0.5 INH SOL 3 ML VIAL.NEB. NEB SCH (21:23)
[2022-06-19] MEDS ORDERED: HEPARIN NA (PORCINE) 5,000 UNITS/ML 1ML VIAL ONE (22:24)
[2022-06-19] MEDS: HEPARIN NA (PORCINE) 5,000 UNITS/ML 1ML VIAL SQ SCH (22:26)
[2022-06-19] MEDS: ATORVASTATIN CA 10 MG TABLET (FP) PO SCH (23:39)
[2022-06-19] MEDS: MELATONIN 5 MG TABLETS PO SCH (23:39)
[2022-06-19] MEDS: SENNOSIDES 8.6MG TABLET (FP) PO SCH (23:39)
[2022-06-20] MEDS: PIPERACILLIN/TAZOB 3.375 GM 3.375 GM in DEXTROSE 5%-WATER - 50 ML IVPB SCH ×3 (01:13→17:51)
[2022-06-20] MEDS: methylPREDNISolone NA SUCC 40 MG/1 ML VIAL IVPUSH SCH ×3 (01:13→17:51)
[2022-06-20 03:59] VITALS: BMI 40.8
[2022-06-20] MEDS: GABAPENTIN 100 MG CAPSULE PO SCH ×3 (06:18→22:28)
[2022-06-20] MEDS: ARTIFICIAL TEARS (POLYVINYL ALCOHOL) OPTH DROPS OU SCH ×3 (06:42→22:28)
[2022-06-20] MEDS: ALBUTEROL SO4 2.5/IPRATROPIUM 0.5 INH SOL 3 ML VIAL.NEB. NEB SCH ×4 (08:25→20:22)
[2022-06-20 08:26] LABS: CALCIUM 9.3 mg/dL (8.5-10.1)
[2022-06-20 08:29] LABS: HEMOGLOBIN 10.9 GM/dL (10.7-15.3); MCH 28.4 pg (25.7-33.7); MCHC 31.2 g/dl (32.0-36.0); MEAN CELL VOLUME 91.1 fl (80-96); MEAN PLT VOLUME 8.4 fl (7.5-11.1); PLATELET COUNT 389 10^3/uL (134-434); RBC 3.84 M/mm3 (3.60-5.2); RDW 16.4 % (11.6-15.6); WHITE BLOOD COUNT 16.7 K/mm3 (4.0-10.0)
[2022-06-20 08:30] LABS: CREATININE 0.7 mg/dL (0.55-1.3)
[2022-06-20] MEDS: FUROSEMIDE 40 MG TABLET (FP) PO SCH (09:16)
[2022-06-20] MEDS: DULoxetine HCL 30 MG CAPSULE.DR PO SCH (09:16)
[2022-06-20] MEDS: BACLOFEN 10 MG TABLET (FP) PO SCH (09:17)
[2022-06-20] MEDS: HEPARIN NA (PORCINE) 5,000 UNITS/ML 1ML VIAL SQ SCH ×2 (09:17→22:28)
[2022-06-20 09:35] LABS: ANISOCYTOSIS 1+; MACROCYTOSIS 1+
[2022-06-20] MEDS ORDERED: AZITHROMYCIN IVPB 500 MG/250 ML BAG IVPB SCH (10:00)
[2022-06-20] MEDS: ATORVASTATIN CA 10 MG TABLET (FP) PO SCH (22:28)
[2022-06-20] MEDS: MELATONIN 5 MG TABLETS PO SCH (22:28)
[2022-06-20] MEDS: SENNOSIDES 8.6MG TABLET (FP) PO SCH (22:29)
[2022-06-21] MEDS: PIPERACILLIN/TAZOB 3.375 GM 3.375 GM in DEXTROSE 5%-WATER - 50 ML IVPB SCH ×3 (01:11→17:26)
[2022-06-21] MEDS: methylPREDNISolone NA SUCC 40 MG/1 ML VIAL IVPUSH SCH ×3 (01:11→17:26)
[2022-06-21] MEDS: GABAPENTIN 100 MG CAPSULE PO SCH ×3 (05:49→21:29)
[2022-06-21] MEDS: ARTIFICIAL TEARS (POLYVINYL ALCOHOL) OPTH DROPS OU SCH ×3 (05:49→21:27)
[2022-06-21] MEDS: ALBUTEROL SO4 2.5/IPRATROPIUM 0.5 INH SOL 3 ML VIAL.NEB. NEB SCH ×4 (07:26→19:52)
[2022-06-21] MEDS: HEPARIN NA (PORCINE) 5,000 UNITS/ML 1ML VIAL SQ SCH ×2 (09:22→21:27)
[2022-06-21] MEDS: BACLOFEN 10 MG TABLET (FP) PO SCH (09:23)
[2022-06-21] MEDS: FUROSEMIDE 40 MG TABLET (FP) PO SCH (09:23)
[2022-06-21] MEDS: DULoxetine HCL 30 MG CAPSULE.DR PO SCH (09:23)
[2022-06-21] MEDS: ATORVASTATIN CA 10 MG TABLET (FP) PO SCH (21:29)
[2022-06-21] MEDS: SENNOSIDES 8.6MG TABLET (FP) PO SCH (21:29)
[2022-06-21] MEDS: MELATONIN 5 MG TABLETS PO SCH (21:29)
[2022-06-22] MEDS: methylPREDNISolone NA SUCC 40 MG/1 ML VIAL IVPUSH SCH ×2 (03:16→09:47)
[2022-06-22] MEDS: PIPERACILLIN/TAZOB 3.375 GM 3.375 GM in DEXTROSE 5%-WATER - 50 ML IVPB SCH ×3 (03:16→17:04)
[2022-06-22] MEDS: GABAPENTIN 100 MG CAPSULE PO SCH ×3 (06:48→21:49)
[2022-06-22] MEDS: ARTIFICIAL TEARS (POLYVINYL ALCOHOL) OPTH DROPS OU SCH ×3 (06:48→21:48)
[2022-06-22] MEDS: ALBUTEROL SO4 2.5/IPRATROPIUM 0.5 INH SOL 3 ML VIAL.NEB. NEB SCH ×4 (08:13→20:05)
[2022-06-22 08:21] LABS: HEMOGLOBIN 11.1 GM/dL (10.7-15.3); MCH 28.4 pg (25.7-33.7); MCHC 31.6 g/dl (32.0-36.0); MEAN CELL VOLUME 89.6 fl (80-96); MEAN PLT VOLUME 8.6 fl (7.5-11.1); PLATELET COUNT 472 10^3/uL (134-434); RDW 16.4 % (11.6-15.6); WHITE BLOOD COUNT 13.7 K/mm3 (4.0-10.0)
[2022-06-22 08:49] LABS: CALCIUM 8.9 mg/dL (8.5-10.1)
[2022-06-22 08:50] LABS: ALBUMIN 2.4 g/dl (3.4-5.0); BLOOD UREA NITROGEN 30.4 mg/dL (7-18); MAGNESIUM 2.2 mg/dL (1.8-2.4)
[2022-06-22 08:53] LABS: CREATININE 0.7 mg/dL (0.55-1.3)
[2022-06-22 08:54] LABS: BILIRUBIN,TOTAL 0.4 mg/dL (0.2-1)
[2022-06-22 08:55] LABS: TOT PROT 5.7 g/dl (6.4-8.2)
[2022-06-22 09:36] LABS: ANISOCYTOSIS 2+; MACROCYTOSIS 0
[2022-06-22] MEDS: FUROSEMIDE 40 MG TABLET (FP) PO SCH (09:47)
[2022-06-22] MEDS: DULoxetine HCL 30 MG CAPSULE.DR PO SCH (09:47)
[2022-06-22] MEDS: BACLOFEN 10 MG TABLET (FP) PO SCH (09:47)
[2022-06-22] MEDS: HEPARIN NA (PORCINE) 5,000 UNITS/ML 1ML VIAL SQ SCH ×2 (09:47→21:49)
[2022-06-22] MEDS ORDERED: SODIUM ZIRCONIUM CYCLOSILICATE (LOKELMA) 5 GM PACKET PO ONE (10:27)
[2022-06-22] MEDS: SENNOSIDES 8.6MG TABLET (FP) PO SCH (21:49)
[2022-06-22] MEDS: ATORVASTATIN CA 10 MG TABLET (FP) PO SCH (21:49)
[2022-06-22] MEDS: MELATONIN 5 MG TABLETS PO SCH (21:49)
[2022-06-23] MEDS: PIPERACILLIN/TAZOB 3.375 GM 3.375 GM in DEXTROSE 5%-WATER - 50 ML IVPB SCH ×3 (03:31→17:48)
[2022-06-23] MEDS: GABAPENTIN 100 MG CAPSULE PO SCH ×3 (06:08→21:43)
[2022-06-23] MEDS: LEVOTHYROXINE 112 MCG, LEVOTHYROXINE 25 MCG PO SCH (06:08)
[2022-06-23] MEDS: ARTIFICIAL TEARS (POLYVINYL ALCOHOL) OPTH DROPS OU SCH ×3 (06:09→21:43)
[2022-06-23] MEDS ORDERED: LEVOTHYROXINE NA 125 MCG TABLET (FP) PO SCH (07:00)
[2022-06-23] MEDS: ALBUTEROL SO4 2.5/IPRATROPIUM 0.5 INH SOL 3 ML VIAL.NEB. NEB SCH ×4 (08:15→20:35)
[2022-06-23] MEDS: DULoxetine HCL 30 MG CAPSULE.DR PO SCH (09:46)
[2022-06-23] MEDS: HEPARIN NA (PORCINE) 5,000 UNITS/ML 1ML VIAL SQ SCH ×2 (09:46→21:43)
[2022-06-23] MEDS: BACLOFEN 10 MG TABLET (FP) PO SCH (09:46)
[2022-06-23] MEDS: FUROSEMIDE 40 MG TABLET (FP) PO SCH (09:47)
[2022-06-23] MEDS: methylPREDNISolone NA SUCC 40 MG/1 ML VIAL IVPUSH SCH (09:47)
[2022-06-23 11:32] LABS: ARTERIAL BLD GAS O2 SATURATION 94.7 % (95-98); ARTERIAL BLOOD GAS BASE EXCESS 9.3 mmol/L (-2-2); ARTERIAL BLOOD GAS PO2 78.9 mmHg (80-100); ARTERIAL BLOOD GAS pH 7.353 (7.350-7.450)
[2022-06-23 11:36] LABS: ALLENS TEST POSITIVE
[2022-06-23] MEDS: SENNOSIDES 8.6MG TABLET (FP) PO SCH (21:43)
[2022-06-23] MEDS: ATORVASTATIN CA 10 MG TABLET (FP) PO SCH (21:43)
[2022-06-23] MEDS: MELATONIN 5 MG TABLETS PO SCH (21:43)
[2022-06-24] MEDS: PIPERACILLIN/TAZOB 3.375 GM 3.375 GM in DEXTROSE 5%-WATER - 50 ML IVPB SCH ×3 (01:01→17:18)
[2022-06-24] MEDS: GABAPENTIN 100 MG CAPSULE PO SCH ×3 (06:41→21:41)
[2022-06-24] MEDS: ARTIFICIAL TEARS (POLYVINYL ALCOHOL) OPTH DROPS OU SCH ×3 (06:41→21:41)
[2022-06-24] MEDS: LEVOTHYROXINE 112 MCG, LEVOTHYROXINE 25 MCG PO SCH (06:41)
[2022-06-24 08:17] LABS: HEMATOCRIT 34.5 % (32.4-45.2); HEMOGLOBIN 10.9 GM/dL (10.7-15.3); MCH 28.6 pg (25.7-33.7); MCHC 31.6 g/dl (32.0-36.0); MEAN CELL VOLUME 90.5 fl (80-96); PLATELET COUNT 421 10^3/uL (134-434); RBC 3.81 M/mm3 (3.60-5.2); RDW 16.7 % (11.6-15.6); WHITE BLOOD COUNT 17.1 K/mm3 (4.0-10.0)
[2022-06-24 08:19] LABS: CALCIUM 8.4 mg/dL (8.5-10.1)
[2022-06-24 08:20] LABS: BLOOD UREA NITROGEN 26.8 mg/dL (7-18)
[2022-06-24 08:23] LABS: CREATININE 0.8 mg/dL (0.55-1.3)
[2022-06-24] MEDS: ALBUTEROL SO4 2.5/IPRATROPIUM 0.5 INH SOL 3 ML VIAL.NEB. NEB SCH ×3 (08:45→16:02)
[2022-06-24] MEDS: BACLOFEN 10 MG TABLET (FP) PO SCH (10:03)
[2022-06-24] MEDS: FUROSEMIDE 40 MG TABLET (FP) PO SCH (10:03)
[2022-06-24] MEDS: HEPARIN NA (PORCINE) 5,000 UNITS/ML 1ML VIAL SQ SCH ×2 (10:03→21:40)
[2022-06-24] MEDS: DULoxetine HCL 30 MG CAPSULE.DR PO SCH (10:03)
[2022-06-24] MEDS: methylPREDNISolone NA SUCC 40 MG/1 ML VIAL IVPUSH SCH (10:03)
[2022-06-24] MEDS: ACETAMINOPHEN 325 MG TABLET (FP) PO PRN (20:09)
[2022-06-24] MEDS: MELATONIN 5 MG TABLETS PO SCH (21:40)
[2022-06-24] MEDS: ATORVASTATIN CA 10 MG TABLET (FP) PO SCH (21:41)
[2022-06-24] MEDS: SENNOSIDES 8.6MG TABLET (FP) PO SCH (21:41)
[2022-06-25] MEDS: PIPERACILLIN/TAZOB 3.375 GM 3.375 GM in DEXTROSE 5%-WATER - 50 ML IVPB SCH ×3 (03:00→17:07)
[2022-06-25] MEDS: ARTIFICIAL TEARS (POLYVINYL ALCOHOL) OPTH DROPS OU SCH ×3 (06:09→21:55)
[2022-06-25] MEDS: LEVOTHYROXINE 112 MCG, LEVOTHYROXINE 25 MCG PO SCH (06:10)
[2022-06-25] MEDS: GABAPENTIN 100 MG CAPSULE PO SCH ×3 (06:10→21:54)
[2022-06-25] MEDS: predniSONE 20 MG TABLET (UD) PO SCH ×2 (09:38→21:54)
[2022-06-25] MEDS: BACLOFEN 10 MG TABLET (FP) PO SCH (09:38)
[2022-06-25] MEDS: HEPARIN NA (PORCINE) 5,000 UNITS/ML 1ML VIAL SQ SCH ×2 (09:39→21:55)
[2022-06-25] MEDS: FUROSEMIDE 20 MG TABLET (FP) PO SCH (09:39)
[2022-06-25] MEDS: DULoxetine HCL 30 MG CAPSULE.DR PO SCH (09:39)
[2022-06-25] MEDS: ACETAMINOPHEN 325 MG TABLET (FP) PO PRN (17:08)
[2022-06-25] MEDS: SENNOSIDES 8.6MG TABLET (FP) PO SCH (21:54)
[2022-06-25] MEDS: MELATONIN 5 MG TABLETS PO SCH (21:54)
[2022-06-25] MEDS: ATORVASTATIN CA 10 MG TABLET (FP) PO SCH (21:55)
[2022-06-26] MEDS: PIPERACILLIN/TAZOB 3.375 GM 3.375 GM in DEXTROSE 5%-WATER - 50 ML IVPB SCH ×2 (03:30→09:39)
[2022-06-26] MEDS: ARTIFICIAL TEARS (POLYVINYL ALCOHOL) OPTH DROPS OU SCH ×3 (06:02→22:04)
[2022-06-26] MEDS: GABAPENTIN 100 MG CAPSULE PO SCH ×3 (06:04→21:55)
[2022-06-26] MEDS: LEVOTHYROXINE 112 MCG, LEVOTHYROXINE 25 MCG PO SCH (06:04)
[2022-06-26] MEDS: DULoxetine HCL 30 MG CAPSULE.DR PO SCH (09:39)
[2022-06-26] MEDS: predniSONE 20 MG TABLET (UD) PO SCH ×2 (09:39→21:55)
[2022-06-26] MEDS: FUROSEMIDE 20 MG TABLET (FP) PO SCH (09:39)
[2022-06-26] MEDS: BACLOFEN 10 MG TABLET (FP) PO SCH (09:39)
[2022-06-26] MEDS: HEPARIN NA (PORCINE) 5,000 UNITS/ML 1ML VIAL SQ SCH (09:39)
[2022-06-26] MEDS ORDERED: ONDANSETRON 4 MG/2 ML VIAL IVPUSH PRN (11:53)
[2022-06-26] MEDS: PANTOPRAZOLE 40 MG TABLET PO SCH (12:13)
[2022-06-26] MEDS ORDERED: FUROSEMIDE 40 MG TABLET (FP) PO ONE (18:00)
[2022-06-26] MEDS: MELATONIN 5 MG TABLETS PO SCH (21:55)
[2022-06-26] MEDS: SENNOSIDES 8.6MG TABLET (FP) PO SCH (21:55)
[2022-06-26] MEDS: ATORVASTATIN CA 10 MG TABLET (FP) PO SCH (21:56)
[2022-06-27] MEDS: ARTIFICIAL TEARS (POLYVINYL ALCOHOL) OPTH DROPS OU SCH ×3 (06:44→22:49)
[2022-06-27] MEDS: LEVOTHYROXINE 112 MCG, LEVOTHYROXINE 25 MCG PO SCH (06:44)
[2022-06-27] MEDS: GABAPENTIN 100 MG CAPSULE PO SCH ×3 (06:44→22:49)
[2022-06-27 07:54] LABS: HEMATOCRIT 37.8 % (32.4-45.2); HEMOGLOBIN 11.6 GM/dL (10.7-15.3); MCH 27.6 pg (25.7-33.7); MCHC 30.6 g/dl (32.0-36.0); MEAN CELL VOLUME 90.3 fl (80-96); MEAN PLT VOLUME 7.2 fl (7.5-11.1); PLATELET COUNT 369 10^3/uL (134-434); RBC 4.19 M/mm3 (3.60-5.2); RDW 17.8 % (11.6-15.6)
[2022-06-27 08:35] LABS: ALBUMIN 2.8 g/dl (3.4-5.0); BLOOD UREA NITROGEN 22.5 mg/dL (7-18); CALCIUM 8.7 mg/dL (8.5-10.1)
[2022-06-27 08:36] LABS: BILIRUBIN,TOTAL 0.2 mg/dL (0.2-1); CREATININE 0.8 mg/dL (0.55-1.3); TOT PROT 5.6 g/dl (6.4-8.2)
[2022-06-27 08:49] LABS: ARTERIAL BLD GAS O2 SATURATION 97.4 % (95-98); ARTERIAL BLOOD GAS BASE EXCESS 7.7 mmol/L (-2-2); ARTERIAL BLOOD GAS PO2 100.6 mmHg (80-100); ARTERIAL BLOOD GAS pH 7.383 (7.350-7.450)
[2022-06-27 08:51] LABS: ALLENS TEST POSITIVE
[2022-06-27] MEDS: FUROSEMIDE 20 MG TABLET (FP) PO SCH (11:21)
[2022-06-27] MEDS: BACLOFEN 10 MG TABLET (FP) PO SCH (11:21)
[2022-06-27] MEDS: predniSONE 20 MG TABLET (UD) PO SCH ×2 (11:22→22:49)
[2022-06-27] MEDS: PANTOPRAZOLE 40 MG TABLET PO SCH (11:22)
[2022-06-27] MEDS: DULoxetine HCL 30 MG CAPSULE.DR PO SCH (11:22)
[2022-06-27] MEDS: ATORVASTATIN CA 10 MG TABLET (FP) PO SCH (22:49)
[2022-06-27] MEDS: MELATONIN 5 MG TABLETS PO SCH (22:49)
[2022-06-27] MEDS: SENNOSIDES 8.6MG TABLET (FP) PO SCH (22:50)
[2022-06-28] MEDS: ARTIFICIAL TEARS (POLYVINYL ALCOHOL) OPTH DROPS OU SCH ×3 (06:26→22:01)
[2022-06-28] MEDS: LEVOTHYROXINE 112 MCG, LEVOTHYROXINE 25 MCG PO SCH (06:26)
[2022-06-28] MEDS: GABAPENTIN 100 MG CAPSULE PO SCH ×3 (06:26→22:01)
[2022-06-28] MEDS: PANTOPRAZOLE 40 MG TABLET PO SCH (10:30)
[2022-06-28] MEDS: predniSONE 20 MG TABLET (UD) PO SCH (10:30)
[2022-06-28] MEDS: BACLOFEN 10 MG TABLET (FP) PO SCH (10:30)
[2022-06-28] MEDS: DULoxetine HCL 30 MG CAPSULE.DR PO SCH (10:30)
[2022-06-28] MEDS: FUROSEMIDE 20 MG TABLET (FP) PO SCH (10:30)
[2022-06-28 20:09] VITALS: RESP 20
[2022-06-28] MEDS: predniSONE 5 MG TABLET (UD) PO SCH (22:00)
[2022-06-28] MEDS: ATORVASTATIN CA 10 MG TABLET (FP) PO SCH (22:01)
[2022-06-28] MEDS: MELATONIN 5 MG TABLETS PO SCH (22:01)
[2022-06-28] MEDS: SENNOSIDES 8.6MG TABLET (FP) PO SCH (22:02)
[2022-06-29] MEDS: GABAPENTIN 100 MG CAPSULE PO SCH ×3 (06:30→21:07)
[2022-06-29] MEDS: LEVOTHYROXINE 112 MCG, LEVOTHYROXINE 25 MCG PO SCH (06:30)
[2022-06-29] MEDS: ARTIFICIAL TEARS (POLYVINYL ALCOHOL) OPTH DROPS OU SCH ×3 (06:31→21:07)
[2022-06-29] MEDS: FUROSEMIDE 20 MG TABLET (FP) PO SCH (10:13)
[2022-06-29] MEDS: DULoxetine HCL 30 MG CAPSULE.DR PO SCH (10:14)
[2022-06-29] MEDS: predniSONE 5 MG TABLET (UD) PO SCH ×2 (10:14→21:06)
[2022-06-29] MEDS: BACLOFEN 10 MG TABLET (FP) PO SCH (10:14)
[2022-06-29] MEDS: PANTOPRAZOLE 40 MG TABLET PO SCH (10:14)
[2022-06-29 20:11] VITALS: BP 124/49; TEMP 98.5
[2022-06-29 20:16] VITALS: PULSE 59
[2022-06-29] MEDS: SENNOSIDES 8.6MG TABLET (FP) PO SCH (21:07)
[2022-06-29] MEDS: ATORVASTATIN CA 10 MG TABLET (FP) PO SCH (21:07)
[2022-06-29] MEDS: MELATONIN 5 MG TABLETS PO SCH (22:14)
== END 2022-06-29 22:00 | DRG 189 ==
LOC: JER 02:42 → JERBED 04:25 → J4W 23:12
PROVIDERS: ADMIT Internal Medicine; ATTEND Family Medicine
DX: J96.22 Acute and chronic respiratory failure with hypercapnia (principal); J18.9 Pneumonia, unspecified organism; I50.33 Acute on chronic diastolic (congestive) heart failure; J44.1 Chronic obstructive pulmonary disease with (acute) exacerbation; Z68.41 Body mass index [BMI] 40.0-44.9, adult; E03.9 Hypothyroidism, unspecified; J96.21 Acute and chronic respiratory failure with hypoxia; E78.5 Hyperlipidemia, unspecified; M48.061 Spinal stenosis, lumbar region without neurogenic claudication; I11.0 Hypertensive heart disease with heart failure; E87.5 Hyperkalemia; F41.9 Anxiety disorder, unspecified; E66.01 Morbid (severe) obesity due to excess calories
CPT/HCPCS: 0241U-QW; 36415; 36600; 71045-TC-FY; 80048; 80053; 82803; 82962; 83605; 83735; 83880; 84439; 84443; 84484; 85025; 85027; 85610; 85730; 87040; 87086; 93005; 93010; 94640; 94660; 99291; 99292; C9803-CS; J0475; J1644; U0003; U0005